=== PATIENT | female | born 1985 | race Caucasian/White ===

== ENCOUNTER → 2017-11-19 11:00 | Outpatient (CLI) | payer OTHER, SELFPAY ==
--- NOTE | 2017-11-19 16:24 | HPBI_ITS ---
MAMMOGRAPHY - BILATERAL SCREENING REASON FOR EXAM: Female, 32 years old. Routine annual screening examination. PERTINENT HISTORY: Mother with breast cancer. Aunt with breast cancer. TECHNIQUE: Digital bilateral breast db (3D mammographic acquisition) in the CC and MLO projections. 2-D mediolateral oblique (MLO) and craniocaudad (CC) views of both breasts were obtained. CAD: Full Field Digital Mammography with Computer Added Detection was performed. COMPARISON: Comparison is made with prior study dated October 27, 2016. FINDINGS: Breast Composition: The breasts are extremely dense, which lowers the sensitivity of mammography. There are no dominant masses or suspicious calcifications. No other significant abnormalities are identified. There has been no significant change since the prior study. HPBI/SCREENING MAMM (CAD), BILAT IMPRESSION: Stable bilateral screening mammogram. Yearly follow-up mammogram recommended. (A) ASSESSMENT CATEGORY: BIRADS Category 1: Negative. A letter regarding these results will be sent to the patient by the facility within 30 days. Approximately 10% of breast cancers are not detected by mammography. A normal mammogram should not delay biopsy of a clinically suspicious abnormality. [id number] Electronically Signed: Cesario Turner, at 9:01 EDT , Service support ,
== END ==
PROVIDERS: Family Provider Family Medicine; PCP Family Medicine; Visit Provider Obstetrics & Gynecology
DX: Z12.31 Encounter for screening mammogram for malignant neoplasm of breast (principal)
CPT/HCPCS: 77063; 77067

== ENCOUNTER → 2018-05-22 13:17 | Outpatient (CLI) | payer OTHER, SELFPAY ==
--- NOTE | 2018-05-22 13:28 | MRI_ITS ---
STUDY: BILATERAL BREAST MR WITHOUT AND WITH CONTRAST REASON FOR EXAM: Female, 33 years old. BRCA 1 positive. Dense fibroglandular tissue. TECHNIQUE: Multi-sequence multi-echo imaging of both breasts was performed with a dedicated breast coil. T1-weighted and T2-weighted images were performed before the administration of contrast. T1-weighted images were also performed after the administration of 6 mL of Gadavist contrast intravenously without complications. COMPARISON: Mammograms dated November 19, 2017 and October 27, 2016 FINDINGS: RIGHT BREAST: The breast tissue is heterogeneously dense with minimal background enhancement. There are no abnormal enhancing masses or areas of non-mass enhancement in the right breast. LEFT BREAST: The breast tissue is heterogeneously dense with minimal background enhancement. There are no abnormal enhancing masses or areas of non-mass enhancement in the left breast. There are no enlarged or abnormal lymph nodes. There is no abnormality in the visualized regions of the chest or liver. MRI/Breast w/o and/or W Cont Bilat IMPRESSION: No significant abnormality identified on the breast MR examination with contrast. CATEGORY: BIRADS Category 1: Negative. A letter regarding these results will be sent to the patient by the facility within 30 days. Electronically Signed: Delfino Martinez MD at 15:01 EDT , Service support ,
== END ==
PROVIDERS: Family Provider Family Medicine; PCP Family Medicine; Visit Provider Obstetrics & Gynecology
DX: R92.2 Inconclusive mammogram (principal); Z15.01 Genetic susceptibility to malignant neoplasm of breast
CPT/HCPCS: 77059; A9585; A4216; C8908

== ENCOUNTER → 2018-06-10 16:15 | Outpatient (CLI) | payer OTHER, SELFPAY | PROVIDERS: Family Provider Family Medicine; PCP Family Medicine; Referring Provider Physician Assistant; Visit Provider Physician Assistant | DX: J02.9 Acute pharyngitis, unspecified (principal) | CPT/HCPCS: 87081 ==

== ENCOUNTER 2018-08-12 05:39 | Day surgery (SDC) | payer OTHER, SELFPAY ==
[2018-06-10 06:17] VITALS: BMI 25.4
[2018-08-07 17:57] LABS: Hematocrit 38.9 % (37-47); Hemoglobin 12.6 g/dl (12.0-15.0); Mean Corp Hgb Conc 32.4 g/gl (32-36); Mean Corpuscular Hgb 30.1 pg (27.0-32.0); Mean Corpuscular Volume 93.1 fL (81-99); Mean Platelet Vol. 9.1 fl (6.2-12.0); Platelet Count 305 K/mm3 (150-450); RBC Distribution Width CV 12.6 % (11.6-14.6); RBC Distribution Width SD 42.4 fl (35.1-43.9); Red Blood Count 4.18 M/mm3 (4.2-5.4); Scan Indicated on CBC? Y/N NO; White Blood Count 8.1 K/mm3 (4.4-11.0)
[2018-08-07 18:04] LABS: Prothrombin Time (Protime)PT. 13.1 SECONDS (11.7-14.9)
[2018-08-07 18:05] LABS: Partial Thromboplast Time 28.6 Seconds (24.1-36.2)
[2018-08-07 18:27] LABS: Anion Gap 6 (5-15); BUN 16 mg/dL (7-18); BUN/Creat Ratio 25.1 RATIO (10-20); Calcium,Total 8.9 mg/dL (8.5-10.1); Chloride 108 mmol/L (98-107); Creatinine, Serum 0.64 mg/dL (0.55-1.02); EST Glomerular Filtration Rate 115 mL/min (>60); Est Glom Filt Rate - Afr Amer 139 mL/min (>60); Glucose 90 mg/dL (74-106); Potassium 3.9 mmol/L (3.5-5.1); Sodium Level 140 mmol/L (136-145)
[2018-08-07 18:36] LABS: Pregnancy, Serum, hCG Quali. NEGATIVE Negative (0-9 Nonpreg)
--- NOTE | 2018-08-10 14:40 | PCM.HP.BLA ---
History and Physical Date of Admission: 08/12/18 Surgical History and Physical Berta Blackburn, a 33 year old female 2 0 0 0 2, presents for RAVH/BSO on August 12, 2018 at 7:30. -- BRCA+ Genetics -- C section delivery in 2014. She is concerned as she has BRAC1+. Has had pelvic u/s d/t her level of anxiety. Desires hysterecomy before age 36. Also considering bilateral mastectomy at some point. MEDICATIONS HISTORY: Current medications prescribed by our practice are: 1. Zofran ODT 4 mg disintegrating tablet, 1 q 8 hrs prn nausea ALLERGIES: Pcn, Rash, Sulfa, Rash, Percocet, Rash, itching, Penicillins, Rash, Sulfa (Sulfonamides), Rash and itching Infections - Chicken pox Illnesses - bicuspid aortic valve and heart murmur Accidents - no injuries of consequence Hospitalizations - see surgery pt +BRACA1; Review of Systems: GENERAL - Denies fever, or chills SKIN - Denies skin changes EYES - Denies visual changes EARS - Denies difficulty hearing NOSE - Denies nasal congestion or bleeding MOUTH - Denies sore throat or difficulty swallowing NECK - Denies pain or swelling RESPIRATORY - Denies shortness of breath or wheezing CARDIOVASCULAR - Denies palpitations or chest pain GASTROINTESTINAL - Denies nausea, vomiting, diarrhea, constipation GENITOURINARY - Denies dysuria, frequency of urination, incontinence of urine MUSCULOSKELETAL - Denies joint or muscle pain NEUROLOGICAL - Denies localized numbness or weakness PSYCHIATRIC - Denies depression or anxiety ENDOCRINE - Denies heat or cold intolerance, weight loss or gain HEMATO-IMMUNOLOGIC - Denies excesive bleeding with cuts SOCIAL HISTORY: Alcohol Use - drinks occasionally Smoking - denies smoking Diet - balanced Diet Lifestyle - and will be moving Exercise - walking Employer - [employer] 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 Maternal Grandmother: Ovarian cancer. Paternal Aunt: Breast cancer. MENSTRUAL HISTORY: LMP Known?- DefiniteAmount/Duration - 6-7, Regularity - Regular, Frequency - monthly days, LMP - 08/06/18, Age Onset Menarche - 12 PAST PREGNANCIES: Total Pregnancies - 2; Full Term Pregnancies - 2; Premature - 0; Abortions, Induced - 0; Abortions, Spontaneous - 0; Ectopics - 0; Multiple Births - 0; Living Children - 2 SURGICAL HISTORY: 1. 09/10/1993 T and A 2. 05/25/2014 ; Giovanna Greenfield M.D. - CPD Prominent sacrum, narrow pelvis AP diameter 3. R large toe, ingrown toenail, 09/24 4. 07/05/2015 ; Giovanna Greenfield M.D. PHYSICAL EXAM BP- 110/70 Sitting, Right arm, regular cuff Weight- 133.62913 lbs Height- 60.00 inch BMI:26.11 CONSTITUTIONAL - NAD, well nourished, and well developed HEENT - Normocephalic, PERRLA, EOMI NECK - no nuchal rigidity LUNGS - clear to auscultation CARDIAC - normal s1, normal s2, no s3 BREAST - no dominant masses, no tenderness, no axillary adenopathy, no nipple discharge and no skin changes ABDOMEN - no masses, no tenderness EXTREMITIES - No edema or calf tenderness NEUROLOGICAL - Cranial nerves II-XII grossly intact PSYCHIATRIC - A and O to time, place, person, mood and affect PAP SMEAR - done External Genital Vagina - non-tender without lesions Urethra/Urethral Meatus - non-tender Bladder - non-tender Vagina - vaginal batista are pink and moist without loss of rugae and no evidence of atropy Cervix - without cervical motion tenderness and has normal size and features without evident lesions Uterus - 5-6 cm in size, mobile and nontender Adnexa - clear without massess or tenderness ASSESSMENT/PLAN: 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 No breast or ovarian cancer in patient but both prevalent in her family. Discussed treatment options and plan to proceeed with RAVH/BSO. 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 Discussed RBAs and all questions answered. Reviewed anticipated operative and postop recovery course.
[2018-08-12] VITALS (10 sets, daily range): BP systolic 90–109; BP diastolic 64–78; PULSE 61–104; RESP 14–18; TEMP 36.2–37.2; O2SAT 94–100; BMI 25.9
--- NOTE | 2018-08-12 | HYST_PTH ---
PATIENT: BRANDYN SHARMA LOC: [facility] [place] U#:[id number] AGE/SX: 33/F ROOM: RE08/12/[address]: Dr. Boogie Quiles MD : 1985 BED: DIS: 08/13/2018 SPEC #: [id number] RECD: 08/12/18 13:25 STATUS: SHIVANI HUSSEIN #: [id number] CRISPIN: 08/12/18 00:[address]: Boogie Quiles DEPT: SURGICAL PATHOLOGY RECD BY: Jose Adame ENTERED: 08/12/18 13:26 SP TYPE: HYSTERECT OTHR DR: MD Dr. Tejal Rodriguez, DO Tissues: Uterus, NOS Procedures: Surgery Specimen Level V HEADER OPERATION: ERAS, lap robotic hysterectomy, bilateral salpingo-oophorectomy PRE-OP DIAGNOSIS: Genetic susceptibility to malignant neoplasm of breast and ovary, BRCA positive TISSUE SUBMITTED: Uterus, bilateral fallopian tubes and ovaries MICROSCOPIC DIAGNOSIS Uterus, hysterectomy: Cervix - nabothian cysts and mild chronic inflammation. Endometrium - proliferative endometrium. Myometrium - no pathologic change. Right ovary - follicular and hemorrhagic corpus luteal cysts. Right fallopian tube - benign paratubal cyst. Left ovary - follicular and corpus luteal cysts. Left fallopian tube - no pathologic change. AM:diego 08/13/18 MICROSCOPIC DESCRIPTION Slides are reviewed. GROSS DESCRIPTION Received in fixative is one container labeled with the patient's name and designated uterus. The specimen consists of a uterus with attached cervix, right and left fallopian tubes. The uterus with cervix measures 7 x 5 x 3.5 cm and weighs 55 gm. The ectocervix is unremarkable. The cervical os is oval in contour. No cervical lesions are identified. The serosal aspect is smooth and glistening. The endocervical canal measures 2.5 cm in length and is grossly unremarkable. The triangular endometrial cavity measures 3 x 2.8 cm. The velvety, light patterson endometrium measures up to 0.2 cm in thickness. The myometrium measures 1.5 cm in average thickness and is free of mass lesions. The smooth, glistening, pink-patterson cystic right ovary measures 3 x 2 x 1.8 cm. Sections reveal multiple cysts containing clear to bloody fluid. The cysts range in size from 0.5 to 1.2 cm in greatest dimension. The adjacent fallopian tube measures 7 cm in length and 0.6 cm in average diameter. The fimbriated end has a normal villous appearance. No tubo-ovarian adhesions are identified. The left ovary is similar in appearance to right ovary and measures 3.5 x 2 x 2 cm. Serial sections of the left ovary likewise reveal multiple cysts containing clear to bloody fluid. The cysts range in size from 0.5 cm to 1 cm in greatest dimension. The left fallopian tube is similar in appearance to right fallopian tube and measures 6 cm in length and 0.7 cm in average diameter. No tubo-ovarian adhesions are seen. P[employer] sections are submitted in ten cassettes as follows: 1 - anterior cervix, 2 - posterior cervix, 3 & 4 - anterior uterine wall, 5 & 6 - posterior uterine wall, 7 & 8 - right fallopian tube and ovary, 9 & 10 - left fallopian tube and ovary. / AM:diego 08/12/18 TC:5 CPT: 37917
--- NOTE | 2018-08-12 06:07 | EKG12_ITS ---
Test Reason : PRE-OP Blood Pressure : / mmHG Vent. Rate : 077 BPM Atrial Rate : 077 BPM P-R Int : 170 ms QRS Dur : 088 ms QT Int : 366 ms P-R-T Axes : 076 056 058 degrees QTc Int : 414 ms Normal sinus rhythm Normal ECG Confirmed by VANDA GONZALEZ, PATRICK ([id number]), video news editor MARU CHAPA ([id number]) on 08/15/2018 3:24:49 PM Referred By: Boogie Quiles Confirmed By:PATRICK DC MD
[2018-08-12] MEDS: Gabapentin 600 MG Tablet PO (06:42)
[2018-08-12] MEDS: Scopolamine 1mg/72hr Patch 1 PATCH TRANSDERM. (06:43)
[2018-08-12] MEDS: Acetaminophen 500 MG Tablet 1000 MG PO (06:43)
[2018-08-12 07:05] LABS: Internal QC Validated? YES +Cl - CLEAR BKGD; Pregnancy, Urine Negative Negative
[2018-08-12 07:11] LABS: Bedside Glucose 104 mg/dL (70-110)
--- NOTE | 2018-08-12 07:37 | PCM.OPRPT ---
Report of Operation Date of Procedure: 08/12/18 Pre-Operative Diagnosis: Positive Breast and Ovarian Cancer Tumor Markers; BRCA Positive Post-Operative Diagnosis: Positive Breast and Ovarian Cancer Tumor Markers; BRCA Positive Surgery/Procedure Performed:: Robotic Assisted Vaginal Hysterectomy and Bilateral Salpingo-Oophorectomy Description of Surgical Findings:: 8 cm uterus with normal-appearing fallopian tubes and ovaries. acid treater: Sowmya Smith acid treater: Mariam Alonso Type of Anesthesia:: General Anesthesiologist: Horace Saavedra Specimen's removed: Uterus and bilateral fallopian tubes and ovaries Drains: Tomlinson to straight drain Estimated Blood Loss (mL): Minimal Fluids Replaced: Crystalloid Description of Procedure: Surgeon: Boogie Quiles MD, FACOG Findings: 8 cm uterus with normal appearing tubes and ovaries bilaterally. Some adhesions of the uterus to the anterior abdominal wall from prior sections. Indication: This is a 33 year old patient who is BRCA positive. Given her markedly increased risk of breast and ovarian cancer the patient desires the above surgery. The patient has been counseled regarding the risks, benefits and alternatives of this procedure including the possibility of bleeding, infection, and injury to surrounding structures such as bowel bladder and all questions were answered. She understands that she may need to be on HRT for an indefinite period of time. Procedure: Pt taken to the operating room where after induction of general anesthesia the patient was prepped and draped in the usual sterile fashion and placed on a non-slip Huggy-u-vac device. Trendendelenburg test was satisfactory. Bladder was drained of urine with a Tomlinson catheter which was left in place. Anterior cervix grasped and cervix was dilated to about 3-4 mm. Uterus sounded to 7 cms. 0-Vicryl suture was placed at the 3:00 and 9:00 position of the cervix. A medium V-care device was then placed in the uterus to allow uterine manipulation and attention was turned to the laparoscopic portion of the procedure. Ropivocaine 0.5% was injected approximately 2-3 cm superior to the umbilicus and an 8 mm robotic camera port was introduced directly with intraperitoneal placement confirmed with insufflation. 8 mm robotic side ports were introduced under direct visualization approximately 10 cm lateral and 2 cm inferior to the umbilical port. A 5 mm left upper quadrant port was introduced and airseal insufflation with CO2 was started. The above findings were noted. Robot was docked without difficulty and attention turned to the robotic portion of the procedure. Approximately 27 cc of Ropivicaine was used. Bilateral infundibulocal ligaments/mesosalpinx were ligated with 35 aquino bipolar coagulation to the level of the round ligament. The posterior aspect of the cervix was identified and then opened for about 1 cm using 25 watt monopolar cautery identifying the V-care device which had been placed vaginally. Bladder flap was opened and divided to the level of the round ligaments using monopolar cautery. Progressive bites were then ligated on each side of the cervix with 35 aquino bipolar cautery to the uterine arteries. The anterior vaginal mucosa was then entered and cervix circumscribed with monopolar cautery. Uterus and attached ovaries and tubes were then removed through the vagina. Vaginal cuff was closed first with 0-Vicryl Trent stitches placed at each angle followed by closure of the mid-cuff with 0-Monocryl V-lock suture in two layers. Pelvis was copiously irrigated with saline and the right and left ureters were noted to peristalse. Robot was undocked and trocars were removed with as much gas as possible. Incisions were closed with 4-0 Monocryl subcuticular sutures and incisions covered with steri-strips and opsite dressing. The patient tolerated the procedure well and was taken to the recovery room in satisfactory condition. Sponge, instruments and needle counts were all correct. There were no apparent complications of the surgery. Cefotan 2 gms IV was given prior to the procedure. Grafts/Implants Used: None - Complications None - Admit VTE Documentation VTE Present on Admission: Yes VTE Mechan Device Prophylaxis: SCD's VTE Pharm Prophylaxis ordered?: Yes
--- NOTE | 2018-08-12 07:41 | PCM.DC.VHY ---
Discharge Diet: No Restrictions Discharge Activity: Return to Normal Activity, May Not Drive - while taking narcotic pain medications., May Shower May resume sexual activity in: 6-8 weeks Call your doctor if your incision/area has: Continuous Slow Oozing, Sudden Increased Bleeding, Increased Pain/ Swelling, Increased Redness, Foul Smelling Discharge Call your doctor if you observe: Fever of 101 or Higher, Inability to urinate, Inability to have a bowel movement, Using more than one pad per hour Allergies/Adverse Reactions: Allergies oxycodone HCl [From Percocet] Allergy (Verified 08/05/18 13:16) Itching Penicillins Allergy (Verified 08/05/18 13:16) Rash Sulfa (Sulfonamide Antibiotics) Allergy (Verified 08/05/18 13:16) Rash Medications to take at Discharge clindamycin HCl 300 mg capsule 600 mg PO ONCE PRN #10 cap 09/19/17 Fluticasone 0.05% [Flonase Nasal Partridge] 1 spray NASAL DAILY 08/05/18 Loratadine/Pseudo 240/10 [Claritin-D 24 Hr] 1 tablet PO DAILY PRN 08/05/18 Mv-Min/Iron/Folic/Calcium/Vitk [Women's Multivitamin Tablet] 1 each PO DAILY 08/05/18 Docusate Sodium [Colace] 100 mg PO BID PRN PRN #60 cap 08/12/18 traMADol [Ultram (G)] 50 mg PO Q6H PRN PRN 7 Days #20 tab 08/12/18 The following prescriptions were given: traMADol [Ultram (G)] 50 mg PO Q6H PRN PRN 7 Days #20 tab PRN Reason: Severe Pain () Docusate Sodium [Colace] 100 mg PO BID PRN PRN #60 cap PRN Reason: Constipation Primary Care Physician: Tejal Mcrae DO [Primary Care Provider] - Test Results: Test results from this visit will be discussed in further detail at your follow-up appointment, if applicable.
[2018-08-12] MEDS: Lidocaine/D5W 2,000 MG/250 ML IV.SOLN 18.12 MG IV (08:13)
[2018-08-12] MEDS: Ondansetron 4 MG/2 ML Vial IV (10:00)
[2018-08-12] MEDS: Ropivacaine 0.5% 30 ML Vial (10:02)
[2018-08-12] MEDS: Ketorolac 30 MG/ML Syringe IV ×3 (12:21→22:42)
[2018-08-12] MEDS: Dextrose 5%-Lactated Ringers 1,000 ML 125 ML IV (12:24)
[2018-08-12] MEDS: Estrogens,Conj. 0.625 MG Tablet PO (18:11)
[2018-08-12] MEDS: Enoxaparin 30 MG/0.3 ML Syringe SC (18:11)
[2018-08-12] MEDS: 0.9% NaCl Peripheral Flush Adult/Peds IV (22:42)
[2018-08-13 03:40] VITALS: BP 105/71; PULSE 81; RESP 16; TEMP 36.7; O2SAT 97
[2018-08-13] MEDS: Ketorolac 30 MG/ML Syringe IV ×2 (03:48→09:42)
[2018-08-13 05:59] LABS: Hematocrit 34.3 % (37-47); Hemoglobin 11.1 g/dl (12.0-15.0); Mean Corp Hgb Conc 32.4 g/gl (32-36); Mean Corpuscular Hgb 30.8 pg (27.0-32.0); Mean Corpuscular Volume 95.3 fL (81-99); Mean Platelet Vol. 9.9 fl (6.2-12.0); Platelet Count 269 K/mm3 (150-450); RBC Distribution Width CV 12.3 % (11.6-14.6); RBC Distribution Width SD 41.5 fl (35.1-43.9); White Blood Count 12.5 K/mm3 (4.4-11.0)
[2018-08-13 06:08] LABS: Scan Indicated on CBC? Y/N NO
[2018-08-13 06:12] LABS: Creatinine, Serum 0.85 mg/dL (0.55-1.02); EST Glomerular Filtration Rate 82 mL/min (>60); Est Glom Filt Rate - Afr Amer 100 mL/min (>60); Estimated Creatinine Clearance 68.25 ml/min
[2018-08-13 07:00] VITALS: O2SAT 97
--- NOTE | 2018-08-13 08:23 | PCM.PN.OB ---
Subjective: Patient without complaints. Tolerating diet well. Able to void on her own. Minimal pain today. - Physical Exam Vital Signs AF, VSS Temp Pulse Resp BP Pulse Ox 98.0 F 81 16 105/71 97 08/13/18 03:40 08/13/18 03:40 08/13/18 03:40 08/13/18 03:40 08/13/18 03:40 Oxygen Delivery Method Room Air Weight: 133 lb 2.547 oz Body Mass Index (BMI) 25.9 Intake and Output for Last 24 Hours 08/11/18 08/12/18 08/13/18 23:59 23:59 23:59 Intake Total 3799 / 3799 400 / 400 Output Total 1575 / 1575 300 / 300 Balance 2224 / 2224 100 / 100 Laboratory Tests Past 24 Hrs 08/13/18 08/13/18 05:18 05:18 WBC 12.5 H RBC 3.60 L Hgb 11.1 L Hct 34.3 L MCV 95.3 MCH 30.8 MCHC 32.4 RDW 12.3 RDW Differential 41.5 Plt Count 269 MPV 9.9 Creatinine 0.85 Estim Creat Clear Calc 68.25 Est GFR (MDRD) Af Amer 100 Est GFR (MDRD) Non-Af 82 Wounds are clean, dry, intact. Good urine output. Hemoglobin and creatinine okay. Medical Necessity - Tobacco Use Smoking Status: Never smoker Assessment/Plan All Active Problems (Last Reviewed 06/10/18 @ 06:19 by Sarah Mercedes) Earache on left (Acute) Pharyngitis, acute (Acute) Doing well postoperative day #1 status post robotic assisted vaginal hysterectomy and bilateral salpingo-oophrectomy. We will released to home with routine instructions.
[2018-08-13] MEDS: Estrogens,Conj. 0.625 MG Tablet PO (09:41)
[2018-08-13] MEDS: 0.9% NaCl Peripheral Flush Adult/Peds IV (09:45)
[2018-08-13 09:51] VITALS: BP 109/74; PULSE 89; RESP 16; TEMP 37; O2SAT 98
--- OUTSIDE RECORDS SUMMARY | 2018-10-05 03:46 | XMS RPT_ITS ---
:1985 Author Organization OHIP Support Name Relationship Address Phone LOPEZ ASTUDILLO Unavailable Unavailable + TAMEKA BLACKBURN Unavailable [address] + [place] [address] TRILOCSCH Unavailable [address] + [place] [address] LOPEZ ASTUDILLO Unavailable NA + [place], [place] TAMEKA BLACKBURN Unavailable [address] + [place] [address] TRILOCSCH Unavailable [address] + [place] [address] LOPEZ ASTUDILLO Unavailable NA + [place], [place] TAMEKA BLACKBURN Unavailable [address] + [place] [address] TRILOCSCH Unavailable [address] + [place] [address] LOPEZ ASTUDILLO Unavailable NA + [place], [place] TAMEKA BLACKBURN Unavailable [address] + [place] [address] TRILOCSCH Unavailable [address] + [place] [address] LOPEZ ASTUDILLO Unavailable NA + [place], [place] TAMEKA BLACKBURN Unavailable [address] + [place] [address] TRILOCSCH Unavailable [address] + [place] [address] LOPEZ ASTUDILLO Unavailable NA + [place], [place] TAMEKA BLACKBURN Unavailable [address] + [place] [address] TRILOCSCH Unavailable [address] + [place] [address] ASTUDILLOLOPEZ Unavailable NA + [place], [place] EDITH TAMEKA Unavailable [address] + [place] [address] TRILOCSCH Unavailable [address] + [place] [address] ASTUDILLO LOPEZ Unavailable NA + [place], [place] RIDOLMAK TAMEKA Unavailable [address] + [place] [address] TRILOCSCH Unavailable [address] + [place] [address] BAUDILIO MEHRDAD Unavailable [address] + [place] [address] EDITH TAMEKA Unavailable [address] + [place] [address] TRILOCSCH Unavailable [address] + [place] [address] BAUDILIOLOPEZ Unavailable NA + [place], [place] TAMEKA BLACKBURN Unavailable [address] + [place] [address] TRILOCSCH Unavailable [address] + [place] [address] Care Team Providers Name Role Phone Suman Vazquezl Attending Unavailable Malys, Tejal Primary Care Unavailable Taylor, Harry Attending Unavailable Malys, Tejal Referring Unavailable Malys, Tejal Primary Care Unavailable Benekos, Giovanna Attending Unavailable Malys, Tejal Primary Care Unavailable Taylor, Harry Attending Unavailable Taylor, Harry Referring Unavailable Benekos, Giovanna Attending Unavailable Malys, Tejal Primary Care Unavailable Elie Duncan Attending Unavailable Malys, Tejal Referring Unavailable Malys, Tejal Primary Care Unavailable Benekos, Giovanna Attending Unavailable Benekos, Giovanna Referring Unavailable Malys, Tejal Primary Care Unavailable Griffin Gale Attending Unavailable Malys, Tejal Referring Unavailable Griffin Gale Attending Unavailable Griffin Gale Referring Unavailable Malys, Tejal Primary Care Unavailable Weeman, Tameka Attending Unavailable Tejal Mcrae Primary Care Unavailable Tameka Quiles Referring Unavailable Claude Quiles Consulting Unavailable PROBLEMS PROBLEMS DATE TYPE CONDITION / CODE ATTENDING STATUS SOURCE 08/13/2018 Unknown G89.18 - Other acute Tameka Quiles Active [place] postprocedural pain [facility] / G89.18(ICD-10) Hospital Repository 06/10/2018 Unknown J02.9 - Acute Griffin Gale Active [place] pharyngitis, [facility] unspecified / Hospital J02.9(ICD-10) Repository 05/22/2018 Unknown R92.2 - Inconclusive Giovanna Greenfield Active [place] mammogram / [facility] R92.2(ICD-10) Hospital Repository 05/22/2018 Unknown Z15.01 - Genetic Giovanna Greenfield Active [place] susceptibility to [facility] malignant neoplasm [facility] breast / Repository Z15.01(ICD-10) 05/01/2018 Unknown J02.0 - Elie Duncan Active [place] [facility] ph[facility]itis / Hospital J02.0(ICD-10) Repository 10/02/2017 Unknown Z12.4 - Encounter Giovanna Greenfield Active [place] for screening for [facility] malignant neoplasm [facility] cervix / Repository Z12.4(ICD-10) 09/20/2017 Unknown Q23.1 - Congenital Taylor, Harry Active [place] insufficiency of [facility] aortic valve / Hospital Q23.1(ICD-10) Repository 10/02/2017 Unknown I35.0 - Nonrheumatic Taylor, Harry Active [place] aortic (valve) [facility] stenosis / Hospital I35.0(ICD-10) Repository PROCEDURES PROCEDURES No Procedure Records FoundRESULTS RESULTS 12 LEAD ELECTROCARDIOGRAM Observed: 08/15/2018 Status: F Source: [place] 3:25 PM [facility] REPOSITORY [place] [facility] [address] [place] [address] 12 Lead EKG 08/12/18 0628 MR#: [id number] Acct: [id number] Name: BERTA BLACKBURN Rep #: [id number] : 1985 33 From: Sheng Dc MD Attending Dr: Tameka Quiles MD Status: [facility] Ordering Dr: Horace Saavedra MD Date: 12/03/18 Location: [facility] Sex: F C Admitted: Test Reason : PRE-OP Blood Pressure : / mmHG Vent. Rate : 077 BPM Atrial Rate : 077 BPM P-R Int : 170 ms QRS Dur : 088 ms QT Int : 366 ms P-R-T Axes : 076 056 058 degrees QTc Int : 414 ms Normal sinus rhythm Normal ECG Confirmed by VANDA GONZALEZ, SHENG ([id number]), editor in chief newspaper MARU CHAPA ([id number]) on 08/15/2018 3:24:49 PM Referred By: Tameka Quiles Confirmed By:SHENG DC MD 08/15/18 1524 Date Sheng Dc MD CC: Horace Saavedra MD; Tameka Quiles MD; Tejal Mcrae DO Signed CBC-COMPLETE BLOOD CNT Collected: 08/13/2018 Status: F Source: [place] NO DIFF 5:18 AM [facility] REPOSITORY TYPE CODE TESTS RESULT OUT OF RANGE REFERENCE UNITS LAB L100.1000 4.4-11.0 K/mm3 High WBC 12.5 LAB L100.1200 4.2-5.4 M/mm3 Low RBC 3.60 LAB L100.1300 12.0-15.0 g/dl Low HGB 11.1 LAB L100.1400 37-47 % Low HCT 34.3 LAB L100.1500 81-99 fL Normal MCV 95.3 LAB L100.1600 27.0-32.0 pg Normal MCH 30.8 LAB L100.1700 32-36 g/gl Normal MCHC 32.4 LAB L100.1810 11.6-14.6 % Normal RDW CV 12.3 LAB L100.1820 35.1-43.9 fl Normal RDW SD 41.5 LAB L100.1900 150-450 K/mm3 Normal PLT 269 LAB L100.2000 6.2-12.0 fl Normal MPV 9.9 Performed By: #### L100.0500 #### [facility] [address] [place], [address] SERUM CREATININE AND Collected: 08/13/2018 Status: F Source: [place] GFR 5:18 AM [facility] REPOSITORY TYPE CODE TESTS RESULT OUT OF RANGE REFERENCE UNITS LAB L501.1100 0.55-1.02 mg/dL Normal 0.85 CREAT,SERUM Result Comment: The validity of the calculated GFR AND GFRAA in patients over 70 years has not been determined. Clinical correlation is essential. LAB L501.1110 >60 mL/min Normal EST GFR 82 Result Comment: Non- GFR Calc LAB L501.1115 >60 mL/min Normal EST GFR - AA 100 Result Comment: GFR Calc LAB L501.1255 ml/min Normal Estimated CRCL 68.25 Performed By: #### L501.1105 #### [facility] [address] [facility] [place], [address] OPERATIVE REPORT Observed: 08/12/2018 Status: F Source: [place] 10:15 AM [facility] REPOSITORY [place] Medical Records Department [address] [place] [address] Operative Report 08/12/18 0737 MR#: [id number] Acct: [id number] Name: BERTA BLACKBURN Joo Rep #: [id number] : 1985 33 From: Tameka Quiles MD PCP: Tejal Mcrae DO Status: [facility] Y Location: [place] [address] Report of Operation Date of Procedure: 08/12/18 Pre-Operative Diagnosis: Positive Breast and Ovarian Cancer Tumor Markers; BRCA Positive Post-Operative Diagnosis: Positive Breast and Ovarian Cancer Tumor Markers; BRCA Positive Surgery/Procedure Performed:: Robotic Assisted Vaginal Hysterectomy and Bilateral Salpingo-Oophorectomy Description of Surgical Findings:: 8 cm uterus with normal-appearing fallopian tubes and ovaries. manager linux: Sowmya Smith manager linux: Mariam Alonso Type of Anesthesia:: General Anesthesiologist: Horace Saavedra Specimen's removed: Uterus and bilateral fallopian tubes and ovaries Drains: Tomlinson to straight drain Estimated Blood Loss (mL): Minimal Fluids Replaced: Crystalloid Description of Procedure: Surgeon: Tameka Quiles MD, FACOG Findings: 8 cm uterus with normal appearing tubes and ovaries bilaterally. Some adhesions of the uterus to the anterior abdominal wall from prior sections. Indication: This is a 33 year old patient who is BRCA positive. Given her markedly increased risk of breast and ovarian cancer the patient desires the above surgery. The patient has been counseled regarding the risks, benefits and alternatives of this procedure including the possibility of bleeding, infection, and injury to surrounding structures such as bowel bladder and all questions were answered. She understands that she may need to be on HRT for an indefinite period of time. Procedure: Pt taken to the operating room where after induction of general anesthesia the patient was prepped and draped in the usual sterile fashion and placed on a non-slip Huggy-u-vac device. Trendendelenburg test was satisfactory. Bladder was drained of urine with a Tomlinson catheter which was left in place. Anterior cervix grasped and cervix was dilated to about 3-4 mm. Uterus sounded to 7 cms. 0-Vicryl suture was placed at the 3:00 and 9:00 position of the cervix. A medium V-care device was then placed in the uterus to allow uterine manipulation and attention was turned to the laparoscopic portion of the procedure. Ropivocaine 0.5% was injected approximately 2-3 cm superior to the umbilicus and an 8 mm robotic camera port was introduced directly with intraperitoneal placement confirmed with insufflation. 8 mm robotic side ports were introduced under direct visualization approximately 10 cm lateral and 2 cm inferior to the umbilical port. A 5 mm left upper quadrant port was introduced and airseal insufflation with CO2 was started. The above findings were noted. Robot was docked without difficulty and attention turned to the robotic portion of the procedure. Approximately 27 cc of Ropivicaine was used. Bilateral infundibulocal ligaments/mesosalpinx were ligated with 35 aquino bipolar coagulation to the level of the round ligament. The posterior aspect of the cervix was identified and then opened for about 1 cm using 25 watt monopolar cautery identifying the V-care device which had been placed vaginally. Bladder flap was opened and divided to the level of the round ligaments using monopolar cautery. Progressive bites were then ligated on each side of the cervix with 35 aquino bipolar cautery to the uterine arteries. The anterior vaginal mucosa was then entered and cervix circumscribed with monopolar cautery. Uterus and attached ovaries and tubes were then removed through the vagina. Vaginal cuff was closed first with 0-Vicryl Trent stitches placed at each angle followed by closure of the mid-cuff with 0-Monocryl V-lock suture in two layers. Pelvis was copiously irrigated with saline and the right and left ureters were noted to peristalse. Robot was undocked and trocars were removed with as much gas as possible. Incisions were closed with 4-0 Monocryl subcuticular sutures and incisions covered with steri-strips and opsite dressing. The patient tolerated the procedure well and was taken to the recovery room in satisfactory condition. Sponge, instruments and needle counts were all correct. There were no apparent complications of the surgery. Cefotan 2 gms IV was given prior to the procedure. Grafts/Implants Used: None - Complications None - Admit VTE Documentation VTE Present on Admission: Yes VTE Mechan Device Prophylaxis: SCD's VTE Pharm Prophylaxis ordered?: Yes 08/12/18 1015 <Electronically signed by Tameka Quiles MD> Date Tameka Quiles MD CC: Claude Quiles MD; Tameka Quiles MD; Tejal Mcrae DO Signed DISCHARGE INSTRUCTION Observed: 08/12/2018 Status: F Source: [place] 10:15 AM [facility] REPOSITORY [place] Medical Records Department [address] [place] [address] Instructions for Home/Discharge Instructions 08/12/18 0741 MR#: [id number] Acct: [id number] Name: BERTA BLACKBURN Aleksey Ge Rep #: [id number] : 1985 33 From: Tameka Quiles MD PCP: Tejal Mcrae DO Status: REG [facility] Discharge Diet: No Restrictions Discharge Activity: Return to Normal Activity, May Not Drive - while taking narcotic pain medications., May Shower May resume sexual activity in: 6-8 weeks Call your doctor if your incision/area has: Continuous Slow Oozing, Sudden Increased Bleeding, Increased Pain/ Swelling, Increased Redness, Foul Smelling Discharge Call your doctor if you observe: Fever of 101 or Higher, Inability to urinate, Inability to have a bowel movement, Using more than one pad per hour Allergies/Adverse Reactions: Allergies oxycodone HCl [From Percocet] Allergy (Verified 08/05/18 13:16) Itching Penicillins Allergy (Verified 08/05/18 13:16) Rash Sulfa (Sulfonamide Antibiotics) Allergy (Verified 08/05/18 13:16) Rash Medications to take at Discharge clindamycin HCl 300 mg capsule 600 mg PO ONCE PRN #10 cap 09/19/17 Fluticasone 0.05% [Flonase Nasal [place]] 1 spray NASAL DAILY 08/05/18 Loratadine/Pseudo 240/10 [Claritin-D 24 Hr] 1 tablet PO DAILY PRN 08/05/18 Mv-Min/Iron/Folic/Calcium/Vitk [Women's Multivitamin Tablet] 1 each PO DAILY 08/05/18 Docusate Sodium [Colace] 100 mg PO BID PRN PRN #60 cap 08/12/18 traMADol [Ultram (G)] 50 mg PO Q6H PRN PRN 7 Days #20 tab 08/12/18 The following prescriptions were given: traMADol [Ultram (G)] 50 mg PO Q6H PRN PRN 7 Days #20 tab PRN Reason: Severe Pain (-06/19) Docusate Sodium [Colace] 100 mg PO BID PRN PRN #60 cap PRN Reason: Constipation Primary Care Physician: Tejal Mcrae DO [Primary Care Provider] - Test Results: Test results from this visit will be discussed in further detail at your follow-up appointment, if applicable. 08/12/18 1015 <Electronically signed by Tameka Quiles MD> Date Tameka Quiles MD CC: Claude Quiles MD; Tejal Mcrae DO BEDSIDE GLUCOSE Collected: 08/12/2018 Status: F Source: [place] 6:35 AM [facility] REPOSITORY TYPE CODE TESTS RESULT OUT OF RANGE REFERENCE UNITS LAB L501.080 70-110 mg/dL Normal BEDSIDE GLU 104 Result Comment: MANAGEMENT OF PATIENT CARE PER NURSING PROTOCOL Performed By: #### L501.080 #### [place] [facility] Point of Care [facility] [address] [place], [place] [id number] ,URINE Collected: 08/12/2018 Status: F Source: [place] 6:10 AM [facility] REPOSITORY TYPE CODE TESTS RESULT OUT OF REFERENCE UNITS RANGE LAB L400.8000 Negative Normal HCGUQUAL Negative Result Comment: Very dilute urine specimens, as indicated by a low specific gravity, may not contain food service representative levels of hCG. If is still suspected, a first morning urine specimen should be collected 48 hours later and tested. Performed By: #### L400.7600 #### [facility] [address] [place], [address] HYSTERECTOMY SPECIMEN Observed: 08/12/2018 Status: F Source: [place] 12:00 AM [facility] REPOSITORY Patient: BERTA BLACKBURN : 1985 (33/F) Acct Num: [id number] Phys: Etta GONZALEZ,Tameka Unit Num: [id number] Loc: [facility] Specimen: [id number] Received: 08/12/18 - 5 Spec Type: HYSTERECT TISSUES 1 TISSUES: Uterus, NOS GROSS DESCRIPTION Received in fixative is one container labeled with the patient's name and designated uterus. The specimen consists of a uterus with attached cervix, right and left fallopian tubes. The uterus with cervix measures 7 x 5 x 3.5 cm and weighs 55 gm. The ectocervix is unremarkable. The cervical os is oval in contour. No cervical lesions are identified. The serosal aspect is smooth and glistening. The endocervical canal measures 2.5 cm in length and is grossly unremarkable. The triangular endometrial cavity measures 3 x 2.8 cm. The velvety, light patterson endometrium measures up to 0.2 cm in thickness. The myometrium measures 1.5 cm in average thickness and is free of mass lesions. The smooth, glistening, pink-patterson cystic right ovary measures 3 x 2 x 1.8 cm. Sections reveal multiple cysts containing clear to bloody fluid. The cysts range in size from 0.5 to 1.2 cm in greatest dimension. The adjacent fallopian tube measures 7 cm in length and 0.6 cm in average diameter. The fimbriated end has a normal villous appearance. No tubo-ovarian adhesions are identified. The left ovary is similar in appearance to right ovary and measures 3.5 x 2 x 2 cm. Serial sections of the left ovary likewise reveal multiple cysts containing clear to bloody fluid. The cysts range in size from 0.5 cm to 1 cm in greatest dimension. The left fallopian tube is similar in appearance to right fallopian tube and measures 6 cm in length and 0.7 cm in average diameter. No tubo- ovarian adhesions are seen. Blower Insulator sections are submitted in ten cassettes as follows: 1 - anterior cervix, 2 - posterior cervix, 3 AND 4 - anterior uterine wall, 5 AND 6 - posterior uterine wall, 7 AND 8 - right fallopian tube and ovary, 9 AND 10 - left fallopian tube and ovary. / AM:diego 08/12/18 TC:5 CPT: 87441 HEADER OPERATION: ERAS, lap robotic hysterectomy, bilateral salpingo-oophorectomy PRE-OP DIAGNOSIS: Genetic susceptibility to malignant neoplasm of breast and ovary, BRCA positive TISSUE SUBMITTED: Uterus, bilateral fallopian tubes and ovaries MICROSCOPIC DESCRIPTION Slides are reviewed. MICROSCOPIC DIAGNOSIS Uterus, hysterectomy: Cervix - nabothian cysts and mild chronic inflammation. Endometrium - proliferative endometrium. Myometrium - no pathologic change. Right ovary - follicular and hemorrhagic corpus luteal cysts. Right fallopian tube - benign paratubal cyst. Left ovary - follicular and corpus luteal cysts. Left fallopian tube - no pathologic change. AM: 08/13/18 Signed [facility] 08/13/18 <signature on file> Performed By: #### PHYST #### [facility] [address] [facility] [place], [address] HISTORY AND PHYSICAL Observed: 08/10/2018 Status: F Source: [place] EXAM 2:42 PM [facility] REPOSITORY [place] Medical Records Department [address] [place] [address] History and Physical 08/10/18 1440 MR#: [id number] Acct: [id number] Name: BERTA BLACKBURN MILA Rep #: [id number] : 1985 33 From: Tameka Quiles MD PCP: Tejal Mcrae DO Status: PRE [facility] Y Location: [facility] History and Physical Date of Admission: 08/12/18 Surgical History and Physical Berta [place], a 33 year old female 2 0 0 0 2, presents for RAVH/BSO on August 12, 2018 at 7:30. -- BRCA+ Genetics -- C section delivery in 2014. She is concerned as she has BRAC1+. Has had pelvic u/s d/t her level of anxiety. Desires hysterecomy before age 36. Also considering bilateral mastectomy at some point. MEDICATIONS HISTORY: Current medications prescribed by our practice are: 1. Zofran ODT 4 mg disintegrating tablet, 1 q 8 hrs prn nausea ALLERGIES: Pcn, Rash, Sulfa, Rash, Percocet, Rash, itching, Penicillins, Rash, Sulfa (Sulfonamides), Rash and itching Infections - Chicken pox Illnesses - bicuspid aortic valve and heart murmur Accidents - no injuries of consequence Hospitalizations - see surgery pt +BRACA1; Review of Systems: GENERAL - Denies fever, or chills SKIN - Denies skin changes EYES - Denies visual changes EARS - Denies difficulty hearing NOSE - Denies nasal congestion or bleeding MOUTH - Denies sore throat or difficulty swallowing NECK - Denies pain or swelling RESPIRATORY - Denies shortness of breath or wheezing CARDIOVASCULAR - Denies palpitations or chest pain GASTROINTESTINAL - Denies nausea, vomiting, diarrhea, constipation GENITOURINARY - Denies dysuria, frequency of urination, incontinence of urine MUSCULOSKELETAL - Denies joint or muscle pain NEUROLOGICAL - Denies localized numbness or weakness PSYCHIATRIC - Denies depression or anxiety ENDOCRINE - Denies heat or cold intolerance, weight loss or gain HEMATO-IMMUNOLOGIC - Denies excesive bleeding with cuts SOCIAL HISTORY: Alcohol Use - drinks occasionally Smoking - denies smoking Diet - balanced Diet Lifestyle - and will be moving Exercise - walking Employer - [employer] 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 Maternal Grandmother: Ovarian cancer. Paternal Aunt: Breast cancer. MENSTRUAL HISTORY: LMP Known?- DefiniteAmount/Duration - 6- 7, Regularity - Regular, Frequency - monthly days, LMP - 08/06/18, Age Onset Menarche - 12 PAST PREGNANCIES: Total Pregnancies - 2; Full Term Pregnancies - 2; Premature - 0; Abortions, Induced - 0; Abortions, Spontaneous - 0; Ectopics - 0; Multiple Births - 0; Living Children - 2 SURGICAL HISTORY: 1. 09/10/1993 T and A 2. 05/25/2014 ; Giovanna Greenfield M.D. - CPD Prominent sacrum, narrow pelvis AP diameter 3. R large toe, ingrown toenail, 09/24 4. 07/05/2015 ; Giovanna Greenfield M.D. PHYSICAL EXAM BP- 110/70 Sitting, Right arm, regular cuff Weight- 133.15246 lbs Height- 60.00 inch BMI:26.11 CONSTITUTIONAL - NAD, well nourished, and well developed HEENT - Normocephalic, PERRLA, EOMI NECK - no nuchal rigidity LUNGS - clear to auscultation CARDIAC - normal s1, normal s2, no s3 BREAST - no dominant masses, no tenderness, no axillary adenopathy, no nipple discharge and no skin changes ABDOMEN - no masses, no tenderness EXTREMITIES - No edema or calf tenderness NEUROLOGICAL - Cranial nerves II-XII grossly intact PSYCHIATRIC - A and O to time, place, person, mood and affect PAP SMEAR - done External Genital Vagina - non-tender without lesions Urethra/Urethral Meatus - non-tender Bladder - non-tender Vagina - vaginal batista are pink and moist without loss of rugae and no evidence of atropy Cervix - without cervical motion tenderness and has normal size and features without evident lesions Uterus - 5-6 cm in size, mobile and nontender Adnexa - clear without massess or tenderness ASSESSMENT/PLAN: 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 No breast or ovarian cancer in patient but both prevalent in her family. Discussed treatment options and plan to proceeed with RAVH/BSO. 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 Discussed RBAs and all questions answered. Reviewed anticipated operative and postop recovery course. 08/10/18 1442 <Electronically signed by Tameka Quiles MD> Date Tameka Quiles MD Cosigner Signature: Date (if applicable) CC: Tameka Quiles MD; Tejal Mcrae DO Signed CBC-COMPLETE BLOOD CNT Collected: 08/07/2018 Status: F Source: [place] NO DIFF 5:39 PM [facility] REPOSITORY Order Comment: Reason for Laboratory Test PRE OP TYPE CODE TESTS RESULT OUT OF RANGE REFERENCE UNITS LAB L100.1000 4.4-11.0 K/mm3 Normal WBC 8.1 LAB L100.1200 4.2-5.4 M/mm3 Low RBC 4.18 LAB L100.1300 12.0-15.0 g/dl Normal HGB 12.6 LAB L100.1400 37-47 % Normal HCT 38.9 LAB L100.1500 81-99 fL Normal MCV 93.1 LAB L100.1600 27.0-32.0 pg Normal MCH 30.1 LAB L100.1700 32-36 g/gl Normal MCHC 32.4 LAB L100.1810 11.6-14.6 % Normal RDW CV 12.6 LAB L100.1820 35.1-43.9 fl Normal RDW SD 42.4 LAB L100.1900 150-450 K/mm3 Normal PLT 305 LAB L100.2000 6.2-12.0 fl Normal MPV 9.1 Performed By: #### L100.0500 #### [facility] [place], [address] PROTHROMBIN TIME W/INR Collected: 08/07/2018 Status: F Source: [place] 5:39 PM [facility] REPOSITORY Order Comment: Reason for Laboratory Test PRE OP TYPE CODE TESTS RESULT OUT OF RANGE REFERENCE UNITS LAB L300.4150 11.7-14.9 SECONDS Normal PROTIME 13.1 LAB L300.4200 Normal INR 1.0 Performed By: #### L300.3900, L300.4310 #### [facility] [address] [place], [place], [address] PARTIAL THROMBOPLAST Collected: 08/07/2018 Status: F Source: [place] TIME 5:39 PM [facility] REPOSITORY Order Comment: Reason for Laboratory Test PRE OP TYPE CODE TESTS RESULT OUT OF RANGE REFERENCE UNITS LAB L300.4310 24.1-36.2 Seconds Normal PTT 28.6 Performed By: #### L300.3900, L300.4310 #### [facility] [address] [place], [place], [address] BASIC METABOLIC Collected: 08/07/2018 Status: F Source: [place]AND[place] PROFILE (BMP) 5:39 PM [facility] REPOSITORY Order Comment: Reason for Laboratory Test PRE OP TYPE CODE TESTS RESULT OUT OF RANGE REFERENCE UNITS LAB L501.0100 74-106 mg/dL Normal GLU 90 Result Comment: Please note revised GLUCOSE reference range effective 2017. LAB L501.1000 7-18 mg/dL Normal BUN 16 LAB L501.1100 0.55-1.02 mg/dL Normal CREAT,SERUM 0.64 Result Comment: The validity of the calculated GFR AND GFRAA in patients over 70 years has not been determined. Clinical correlation is essential. LAB L501.1110 >60 mL/min Normal EST GFR 115 Result Comment: Non- GFR Calc LAB L501.1115 >60 mL/min Normal EST GFR - AA 139 Result Comment: GFR Calc LAB L501.1300 10-20 RATIO High BUN/CRE 25.1 LAB L501.2200 8.5-10.1 mg/dL CA Normal 8.9 LAB L501.5300 136-145 mmol/L NA Normal 140 LAB L501.5600 3.5-5.1 mmol/L K Normal 3.9 LAB L501.5900 98-107 mmol/L High CL 108 LAB L501.6100 21.0-32.0 mmol/L Normal CO2 26.0 LAB L501.6200 5-15 Normal GAP 6 Performed By: #### L500.2500 #### [facility] [address] [place], [address] ,SERUM,HCG QUALI. Collected: Status: F Source: BRANDI 08/07/2018 5:39 PM [facility] REPOSITORY TYPE CODE TESTS RESULT OUT OF REFERENCE UNITS RANGE LAB L700.7000 0-9 Nonpreg Negative Normal HCGSQUAL NEGATIVE LAB L700.6700 =>Qualitative mIU/mL Normal HCG Qual < 1 triggr Performed By: #### L700.6800 #### [facility] [address] [place], [address] TYPE AND SCREEN Collected: 08/07/2018 Status: F Source: BRANDI 5:39 PM [facility] REPOSITORY Order Comment: Surgery Date: 08/12/18 Hx of Preganancy in last 3 Months No Ever experience any problems with transfusion(s)? N Hx of Transfusion in last 3 Months N Reason for Type AND Screen/Red Cells: SURGERY Other - use comments: 07000 SURGICAL PROCEDURE: RAVH/BSO TYPE CODE TESTS RESULT OUT OF RANGE REFERENCE UNITS LAB B10.0800 O Normal BLOOD TYPE GEL POSITIVE LAB B100.4000 Normal Antibody NEGATIVE Screen Performed By: #### B101.7475 #### [facility] [address] [place], [place], [address] URGENT CARE VISIT Observed: 06/10/2018 Status: F Source: BRANDI REPORT 6:52 AM [facility] REPOSITORY [facility] [address] [place] [address] [address] [place] [address] OFFICE VISIT Date of Service: 06/10/18 MR#: [id number] Acct: [id number] Name: BERTA BLACKBURN MILA Rep #: [id number] : 1985 Provider: Griffin CHRISTY Age/Sex: 33/F Location: [facility] [place] Status: Signed Intake Vital Signs06/10/18 Height 5 ft Intake Visit Reasons: SORE THROAT, ACHE, CHILLS, LT EAR ACHE Chief Complaint: Sore throat, earache Allergies acetaminophen [From Percocet] Allergy (Verified 06/10/18 06:18) Itching oxycodone HCl [From Percocet] Allergy (Verified 06/10/18 06:18) Itching Penicillins Allergy (Verified 06/10/18 06:18) Rash Sulfa (Sulfonamide Antibiotics) Allergy (Verified 06/10/18 06:18) Rash Medications clindamycin HCl 300 mg capsule 600 mg PO ONCE PRN #10 cap 09/19/17 [Rx Confirmed 06/10/18] multivitamin,ld-arxc-campwykp tablet 1 tab PO QDAY 09/19/17 [History Confirmed 06/10/18] PFS Medical History Non-rheumatic aortic regurgitation (Chronic) Non-rheumatic aortic stenosis (Chronic) Bicuspid aortic valve (Chronic) History of bicuspid heart valve (Acute) Surgical History History of (Chronic) History of tonsillectomy and adenoidectomy (Chronic) Family History Mother Hypertension Social History Smoking Status: Never smoker alcohol intake: current alcohol intake frequency: holidays/special occasions only HPI HPI Chief Complaint: Sore throat, earache Details: BERTA BLACKBURN, is a 33 F who presents to the office today for initial evaluation approximately 24-hour history of sore throat and left earache. Patient notes last night approximately 1 in the morning having a T-max of 102.0 Fahrenheit. Patient is particularly concerned because she was diagnosed with streptococcal pharyngitis approximately a month ago was treated with clindamycin at that time. Additionally, she notes occasional chills though no complaints of sweats or rash or cough or chest pain/shortness of breath. She is a non-smoker noting no other members in her household with similar symptoms. 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 She notes no other associated symptoms and no other alleviating or aggravating factors. ROS Const Constitutional: No other (ROS negative x10 other than as noted above) Exam Const General: cooperative, healthy appearing, no acute distress, comfortable Nutritional Appearance: average body habitus Orientation: alert, awake, oriented x3 HENMT Head: normal to inspection Ears: hearing grossly normal bilaterally, external ears normal, TM's normal bilaterally, EAC's normal Nose: external nose normal, nares normal, septum normal, no nasal discharge Face and sinus: normal facial exam, face symmetric, sinuses nontender Mouth: oral mucosae normal, lip normal, oropharynx normal, tongue normal Teeth and gingiva: dentition normal, gingiva normal Throat: uvula midline, posterior oropharynx normal, no postnasal drainage, abnormal tonsil (Trace erythema; rapid strep test today negative) Eyes General: appearance normal, both eyes and all related structures Neck Neck: normal visual inspection, full ROM, no meningeal signs, supple, lymphadenopathy (L>R anterior cervical lymph node swelling without tenderness to palpation) Neck mass: No Thyroid: thyroid normal Chest Chest palpation AND inspection: normal inspection of the chest Resp Effort AND Inspection: normal respiratory effort, able to speak in complete sentences Auscultation: Bilateral: Clear to Auscultation Cardio Palpation: normal PMI Rate: regular rate Rhythm: regular rhythm Heart Sounds: S1 normal, S2 normal, no gallops, murmur (1/6 systolic), no rubs Pulses: radial pulses present GI Inspection: normal to inspection Palpation: soft, no hepatosplenomegaly Skin General: no rashes or lesions noted Neuro General: alert, awake, oriented x3, gait normal Cognition: normal cognition Speech: speech normal Gait: normal gait Motor: muscle tone normal throughout Sensory Exam: no sensory deficits noted Extrem General: normal to inspection Psych Appearance: grossly normal Mental Status: mental status grossly normal Mood: congruent mood Affect: normal affect Speech and Movement: speech and movement normal Attitude: cooperative Thought Process: normal Thought Content: normal Judgment: judgment good Results [facility] Office Rapid Strep A Negative Last Edit by Sarah Mercedes on 06/10/18 06:27 Assessment AND Plan Problems 1. Acute streptococcal pharyngitis J02.0 2. Earache on left H92.02 Plan Patient aware today's rapid strep test was negative therefore culture sent to lab for further evaluation. Clear fluids, rest, Advil/Tylenol, salt water gargles, change to pressure as instructed today. Follow-up with PCP in 5-7 days should symptoms not improve, sooner should symptoms worsen or any other concerns develop. Patient states acknowledging understanding all the above. This note was generated with Alcrestaation software. It may contain incorrect words, spelling, and punctuation that were not noted in checking the note before signing. Orders Orders: Coding Level of Care Code Off vis,est,level 3 Diagnoses Acute streptococcal pharyngitis J02.0 Earache on left H92.02 06/10/18 0652 <Electronically signed by Griffin CHRISTY> Date Griffin CHRISTY Cosigner Signature: Date (if applicable) CC: Observed: 06/10/2018 Status: F Source: [place] CULTURE, R/O STREP A 6:30 AM [facility] REPOSITORY KHUSHI Culture No Group A Beta Streptococcus isolated. * This cultures intended use is to screen for Beta Streptococcus A only. All other pathogens and potential pathogens will not be screened for or reported. If a complete workup of all potential pathogens is indicated an order for a routine throat culture is required. Performed By: #### M100.010 #### [facility] [address] [place] [address]. [place], [address] BREAST W/O AND/OR W Observed: 05/22/2018 Status: F Source: [place] CONT BILAT 1:28 PM [facility] REPOSITORY [facility] [address] [place] [address] Breast w/o and/or W Cont Bilat MR#: [id number] Acct: [id number] Name: BERTA BLACKBURN MILA Rep #: [id number] : 1985 F 33 From: Delfino Martinez MD PCP: Tejal Mcrae DO Status: REG CLI Study: Breast w/o and/or W Cont Bilat Date of Exam: 05/22/18 Exam# [id number] Ordering Dr: Giovanna Greenfield MD STUDY: BILATERAL BREAST MR WITHOUT AND WITH CONTRAST REASON FOR EXAM: Female, 33 years old. BRCA 1 positive. Dense fibroglandular tissue. TECHNIQUE: Multi-sequence multi-echo imaging of both breasts was performed with a dedicated breast coil. T1-weighted and T2- weighted images were performed before the administration of contrast. T1- weighted images were also performed after the administration of 6 mL of Gadavist contrast intravenously without complications. COMPARISON: Mammograms dated November 19, 2017 and October 27, 2016 FINDINGS: RIGHT BREAST: The breast tissue is heterogeneously dense with minimal background enhancement. There are no abnormal enhancing masses or areas of non-mass enhancement in the right breast. LEFT BREAST: The breast tissue is heterogeneously dense with minimal background enhancement. There are no abnormal enhancing masses or areas of non-mass enhancement in the left breast. There are no enlarged or abnormal lymph nodes. There is no abnormality in the visualized regions of the chest or liver. MRI/Breast w/o and/or W Cont Bilat IMPRESSION: No significant abnormality identified on the breast MR examination with contrast. CATEGORY: BIRADS Category 1: Negative. A letter regarding these results will be sent to the patient by the facility within 30 days. Electronically Signed: Delfino Martinez MD at 15:01 EDT , Service support , CC: Giovanna Greenfield MD; Tejal Mcrae DO Metal Roaster: Signed URGENT CARE VISIT Observed: 04/30/2018 Status: F Source: BRANDI REPORT 6:[address] [address] OFFICE VISIT Date of Service: 04/30/18 MR#: [id number] Acct: [id number] Name: BERTA BLACKBURN Rep #: [id number] : 1985 Provider: Elie CHRISTY Age/Sex: 33/F Location: [facility] [place] Status: Signed Intake Intake Visit Reasons: STREP Allergies acetaminophen [From Percocet] Allergy (Verified 09/19/17 16:35) Itching oxycodone HCl [From Percocet] Allergy (Verified 09/19/17 16:35) Itching Penicillins Allergy (Verified 09/19/17 16:35) Rash Sulfa (Sulfonamide Antibiotics) Allergy (Verified 09/19/17 16:35) Rash Medications clindamycin HCl 300 mg capsule 600 mg PO ONCE PRN #10 cap 09/19/17 [Rx Confirmed 09/19/17] multivitamin,zf-yoch-nzsvokfl tablet 1 tab PO QDAY 09/19/17 [History Confirmed 09/19/17] clindamycin HCl 300 mg capsule 300 mg PO TID 10 Days #30 cap 04/30/18 [Rx Confirmed 04/30/18] PFSH Medical History Non-rheumatic aortic regurgitation (Chronic) Non-rheumatic aortic stenosis (Chronic) Bicuspid aortic valve (Chronic) History of bicuspid heart valve (Acute) Surgical History History of (Chronic) History of tonsillectomy and adenoidectomy (Chronic) Family History Mother Hypertension Social History Smoking Status: Never smoker alcohol intake: current alcohol intake frequency: holidays/special occasions only HPI HPI Details: BERTA BLACKBURN, is a 33 F who presents to the office today for complaint of sore scratchy throat. Patient has a daughter who is also here that just tested positive for strep and is requesting a strep test at this time. She states that the sore scratchy throat has progressed over the past 2 days however denies any fever, chills, sweats. She has had no nausea, vomiting, diarrhea. No other associated symptoms or alleviating/aggravating factors. ROS Const Constitutional: No fever(s), headache(s), anorexia, chills or abnormal sleep pattern ENT ENT: Positive for post nasal drip, sore throat, nasal congestion and nasal discharge; no headache(s) or ear pain Resp Respiratory: No shortness of breath Cardio Cardiology: No irregular heart rhythm or palpitations Gastro GI: No nausea/dyspepsia Neuro Neurology: No headache(s) or behavioral changes Psych Psychiatric: No abnormal sleep pattern, No behavioral changes Exam Const General: cooperative, healthy appearing [facility] Head: normal to inspection Ears: hearing grossly normal bilaterally, TM's normal bilaterally, EAC's normal Nose: external nose normal, nasal discharge clear Mouth: oral mucosae normal Throat: abnormal tonsil bilaterally Resp Effort AND Inspection: normal respiratory effort Auscultation: Bilateral: Clear to Auscultation Cardio Palpation: normal PMI Rate: regular rate Rhythm: regular rhythm Other: 3 out of 6 systolic murmur with a history of bicuspid aortic valve. Neuro General: CN's II-XI intact bilaterally, alert Psych Appearance: grossly normal Mental Status: mental status grossly normal Assessment AND Plan Problems 1. Acute streptococcal pharyngitis J02.0 Status Acute Plan Positive rapid strep in the office today. Clindamycin as prescribed. Encouraged to get plenty of rest, drink lots of clear liquids, and use Tylenol or Ibuprofen (unless contraindicated) for fever and comfort. Patient also educated on other symptomatic management techniques. To be seen in 7-10 days if no improvement; sooner if worsening of symptoms. Patient advised of potential red flags and when appropriate report to the ED. Patient verbalized understanding of all the above Orders Orders: Medications New: Coding Level of Care Code Off vis,est,level 3 Diagnoses Acute streptococcal pharyngitis J02.0 Pharyngitis/tonsillitis etiology: streptococcus 04/30/18 1805 <Electronically signed by Elie CHRISTY> Date Elie CHRISTY Cosigner Signature: Date (if applicable) CC: SCREENING MAMM (CAD), Observed: 11/19/2017 Status: F Source: BRANDI GUTIÉRREZ 4:24 PM [facility] REPOSITORY [facility] [address] [place] [address] SCREENING MAMM (CAD), BILAT MR#: [id number] Acct: [id number] Name: BERTA BLACKBURN Rep #: [id number] : 1985 F 32 From: Cesario Turner MD PCP: Tejal Mcrae DO Status: PRE CLI Study: SCREENING MAMM (CAD), BILAT Date of Exam: 11/19/17 Exam# [id number] Ordering Dr: Giovanna Greenfield MD MAMMOGRAPHY - BILATERAL SCREENING REASON FOR EXAM: Female, 32 years old. Routine annual screening examination. PERTINENT HISTORY: Mother with breast cancer. Aunt with breast cancer. TECHNIQUE: Digital bilateral breast db (3D mammographic acquisition) in the CC and MLO projections. 2-D mediolateral oblique (MLO) and craniocaudad (CC) views of both breasts were obtained. CAD: Full Field Digital Mammography with Computer Added Detection was performed. COMPARISON: Comparison is made with prior study dated October 27, 2016. FINDINGS: Breast Composition: The breasts are extremely dense, which lowers the sensitivity of mammography. There are no dominant masses or suspicious calcifications. No other significant abnormalities are identified. There has been no significant change since the prior study. HPBI/SCREENING MAMM (CAD), BILAT IMPRESSION: Stable bilateral screening mammogram. Yearly follow-up mammogram recommended. (A) ASSESSMENT CATEGORY: BIRADS Category 1: Negative. A letter regarding these results will be sent to the patient by the facility within 30 days. Approximately 10% of breast cancers are not detected by mammography. A normal mammogram should not delay biopsy of a clinically suspicious abnormality. [id number] Electronically Signed: Cesario Turner MD at 9:01 EDT Tel [phone], Service support , CC: Giovanna Greenfield MD; Tejal Mcrae DO Metal Roaster: Signed PAP I-G W/RFX HRHPV Collected: 10/01/2017 Status: F Source: BRANDI 12:00 AM [facility] REPOSITORY Order Comment: CYTOLOGY INFORMATION: - CLINICAL INFORMATION: - DATE LMP/MENOPAUSE: 09/19 LMP - COLLECTION VIAL: Thin Prep Vial - ROAD HOGGER OPERATOR SOURCE: CERVICAL/ENDOCERVICAL - COLLECTION TECHNIQUE: BRUSH/SPATULA Specimen Comment: [id number] Specimen Comment: No. of containers..01 ThinPrep Vial TYPE CODE TESTS RESULT OUT OF RANGE REFERENCE UNITS LAB L7400.0800 . Normal DIAGN Comment Result Comment: NEGATIVE FOR INTRAEPITHELIAL LESION AND MALIGNANCY. LAB L7400.0900 . Normal ADEQ Comment Result Comment: Satisfactory for evaluation. Endocervical and/or squamous metaplastic cells (endocervical component) are present. LAB L7400.1400 . Normal PERFORM Comment Result Comment: Lukas Alvarado, American Indian Policy Specialist (ASCP) LAB L7400.2575 . Normal TEST METHOD Comment Result Comment: This liquid based ThinPrep(R) pap test was screened with the use of an image guided system. LAB L7400.2600 . Normal . COMM LAB L7400.2700 . Normal PAPSMR Comment Result Comment: The Pap smear is a screening test designed to aid in the detection of premalignant and malignant conditions of the uterine cervix. It is not a diagnostic procedure and should not be used as the sole means of detecting cervical cancer. Both false-positive and false-negative reports do occur. LAB L7400.2800 . Normal HPV RFLX Comment Result Comment: The HPV DNA reflex criteria were not met with this specimen result therefore, no HPV testing was performed. Performed at: - [facility] [id number] Charcoal Unloader: Candi Dennison MD, Phone: [phone] Performed By: #### L7400.0350 #### [facility] (refer to report for specific site) refer to report for address and phone number CARDIOLOGY VISIT Observed: 09/19/2017 Status: F Source: BRANDI REPORT 5:05 PM [facility] REPOSITORY [facility] [address] [place] [address] OFFICE VISIT Date of Service: 09/19/17 MR#: [id number] Acct: [id number] Name: BERTA BLACKBURN #: [id number] : 1985 Provider: Harry Vazquez MD Age/Sex: 32/F Location: [facility] [place] Status: Signed HPI 1 Y FU: Chief Complaint: Follow-up visit. Details: BERTA BLACKBURN, is a 32 F who presents to the office today for follow-up visit for her bicuspid aortic valve. She has been asymptomatic doing well at this time. She now has 2 children aged 3 and 2. She has had no neck, jaw discomfort suggest angina no dizziness or diaphoresis no near syncope or syncope. She had a routine echocardiogram performed which demonstrated a mean gradient of approximately 10 mmHg across the aortic valve with mild aortic regurgitation. In comparison to the echocardiogram from 2015 the mean gradient is essentially unchanged ejection fraction is normal. Her physical exam demonstrates clear lung cristina regular rate and rhythm and midsystolic click and a 1-2 over systolic murmur noted left sternal border. Intake Vital Signs09/19/17 Height 5 ft 09/19/17 Weight: 131 lb 09/19/17 Body Mass Index (BMI) 25.5 09/19/17 Blood Pressure 104/60 09/19/17 Respiratory Rate 16 09/19/17 Pulse Rate 78 Intake Visit Reasons: 1 Y FU Allergies acetaminophen [From Percocet] Allergy (Verified 09/19/17 16:35) Itching oxycodone HCl [From Percocet] Allergy (Verified 09/19/17 16:35) Itching Penicillins Allergy (Verified 09/19/17 16:35) Rash Sulfa (Sulfonamide Antibiotics) Allergy (Verified 09/19/17 16:35) Rash Medications clindamycin HCl 300 mg capsule 600 mg PO ONCE PRN #10 cap 09/19/17 [Rx Confirmed 09/19/17] multivitamin,dz-zhsa-kpoxgidp tablet 1 tab PO QDAY 09/19/17 [History Confirmed 09/19/17] Ejection fraction %: 60 to 64 PFSH Medical History Non-rheumatic aortic regurgitation (Chronic) Non-rheumatic aortic stenosis (Chronic) Bicuspid aortic valve (Chronic) History of bicuspid heart valve (Acute) Surgical History History of (Chronic) History of tonsillectomy and adenoidectomy (Chronic) Family History Mother Hypertension Social History Smoking Status: Never smoker alcohol intake: current alcohol intake frequency: holidays/special occasions only ROS Const Const: Negative for fatigue, weakness, difficulty sleeping, frequent falls, headache(s) or excessive sweating Eyes Eyes: Negative for loss of peripheral vision, transient loss of vision, blurry vision or double vision ENT ENT: Negative for headache(s), Negative for dizziness, Negative for Nosebleed/epistaxis, Negative for balance problems Cardio Chest Pain: No Edema: None Muscle aches with walking: None Resp Respiratory: Negative for SOB with activity, SOB at rest, SOB orthopnea\SOB lying down or paroxysmal nocturnal dyspnea GI GI: Negative nausea or heartburn : Negative for hematuria Musc Musc: Negative for muscle aches/ myalgia, muscle weakness, joint pain or balance problems Skin Skin: Negative non-healing lesions, unusual bruising or rash Neuro Neuro: Negative for weakness, Negative for frequent falls, Negative for blurry vision, Negative for headache(s), Negative for dizziness, Negative for lightheadedness, Negative for orthostatic symptoms, Negative for double vision Stanislaw Hematologic/Lymphatic: Negative for easy bruising Endo Endo: Negative for fatigue, excessive sweating or increased thirst/drinking Psych Psych: Negative for anxiety or depression Allergy Allergy/Immunology: Negative for hives, Negative for rash Cardiology Exam Const Appearance: cooperative, healthy appearing, well developed, well groomed and no acute distress Nutritional Appearance: well nourished and average body habitus Orientation: alert, awake and oriented x3 Head Head: normal to inspection, normocephalic and atraumatic Ears: hearing grossly normal bilaterally and external ears normal Nose: external nose normal, nasal mucous membranes and turbinates normal, nares normal, septum normal, no nasal discharge Face and Sinus: face symmetric Mouth: oral mucosae normal, tongue normal, oropharynx normal and moist mucous membranes Teeth and gingiva: dentition normal Throat: posterior oropharynx normal, tonsils normal and uvula midline Eyes General: appearance normal, both eyes and all related structures Eyelids: eyelids normal Conjunctivae: conjunctivae normal Pupils: PERRL, normal by confrontation and accommodation normal EOM: EOM intact bilaterally Neck Neck: normal visual inspection, trachea midline and no JVD JVD: +5 Carotids: normal carotid upstroke and bounding pulses Chest Chest inspection: normal inspection of the chest, symmetric chest movement and normal respiratory effort Auscultation: Bilateral: Clear to Auscultation Cardio Palpation: normal PMI Rate: regular rate Rhythm: regular rhythm Heart sounds: S1 normal, S2 normal and mid systolic click Murmur: Grade 1/6, soft, early systolic and LLSB GI GI: normal to inspection, soft, no hepatosplenomegaly and bowel sounds present Neuro General: alert, awake, oriented x3, no focal sensory deficit, gait normal and moves all extremities Skin Skin: no rashes or lesions noted Extremities Pulses: Normal: Right Femoral Pulse, Left Femoral Pulse, Right Dorsalis Pedis Pulse, Left Dorsalis Pedis Pulse, Right Posterior Tibial Pulse, Left Posterior Tibial Pulse, Right Radial Pulse, Left Radial Pulse Lower Extremity Edema: None: Bilateral Musculoskel Musculoskeletal: No joint tenderness Psych Psychological: normal affect Assessment AND Plan 1. Bicuspid aortic valve Q23.1 Plan She does have an asymptomatic bicuspid aortic valve with an adequate mean gradient ejection fraction is preserved my recommendation is to continue antibiotic prophylaxis. I like to see her again in approximately 18 months. We will consider a repeat echocardiogram in 2 years from now. Certainly if she should have any symptoms she should not hesitate to get in touch with me. Plan Detail Other Medications New: Discontinued: azithromycin Discontinued Reason: take 2 tablets today and one for the n Yany Ji Pt no longer taking ext for days ferrous gluconate Discontinued Nchi272 mg PO DAILY@0800 anemia Yany Ji on: Pt no longer taking Follow Up 18 Months (date pitter) 09/19/17 1705 <Electronically signed by Harry Vazquez MD> Date Harry Vazquez MD Cosigner Signature: Date (if applicable) CC: Tejal Mcrae DO ECHOCARDIOGRAM COMPLETE Observed: 08/31/2017 Status: F Source: BRANDI 11:19 AM [facility] REPOSIT[facility] [place] [facility] [address] [place] [address] Echo Complete 08/31/17 0811 MR#: [id number] Acct: [id number] Name: BERTA BLACKBURN Rep #: [id number] : 1985 32 From: Harry Vazquez MD Attending Dr: Harry Vazquez MD Status: REG CLI Ordering Dr: Harry Vazquez MD Date: 08/31/17 Location: [facility] Sex: F C Admitted: Reason For Study: BICUSPID AV Procedure This was a 2D Doppler, Color Flow transthoracic echocardiogram. Exam performed in department. Left Ventricle Normal LV size. Left ventricular systolic function is normal. The estimated ejection fraction is 60 %. No regional wall motion abnormalities noted. Right Ventricle Normal RV size. Normal systolic function. Atria Normal left atrium. Normal right atrium. Mitral Valve Normal mitral valve. Trivial eccentric mitral valve insufficiency. Tricuspid Valve Normal tricuspid valve. Mild tricuspid valve insufficiency. Aortic Valve Bicuspid aortic valve. Peak aortic valve gradient 20 mmHg. Mean aortic valve gradient 10 mmHg. Mild aortic stenosis. Mild (1+) aortic valve insufficiency. Pulmonic Valve Normal pulmonic valve. Great Vessels Normal aortic root. The pulmonary artery is normal size. Normal inferior vena cava. Pericardium/Pleural No pericardial effusion. MMode/2D Measurements AND Calculations LVIDd: 3.8 cm IVSd: 0.62 cm LVOT diam: 2.0 cm LVIDs: 2.6 cm LVPWd: 0.65 cm LVOT area: 3.1 cm2 RVDd: 2.8 cm FS: 29.5 % Ao root diam: 2.5 cm LAV(MOD-bp): 36.7 ml EDV(MOD-sp4): 83.3 ml LA dimension: 2.9 cm LAV(MOD-bp) Indexed: 24.0 ml/m2 ESV(MOD-sp4): 32.6 ml LAV(MOD-sp2): 36.5 ml EF(MOD-sp4): 60.9 % LAV(MOD-sp4): 36.1 ml EDV(MOD-sp2): 93.2 ml SV(MOD-sp4): 50.7 ml SV(MOD-sp2): 59.4 ml EF(MOD-sp2): 63.8 % LA A4 area: 14.2 cm2 RA A4 area: 12.1 cm2 Doppler Measurements AND Calculations MV E max moshe: 92.5 cm/sec Lat Peak E' Moshe: 17.1 cm/sec Med Peak E' Moshe: 12.3 cm/sec MV A max moshe: 47.9 cm/sec E/E' lat: 5.4 E/E' med: 7.5 MV E/A: 1.9 Ao V2 max: 226.1 cm/sec AI max moshe: 352.8 cm/sec LV V1 max: 71.5 cm/sec Ao max P.5 mmHg AI max P.8 mmHg LV V1 max P.0 mmHg Ao V2 mean: 150.0 cm/sec AI dec slope: 303.0 cm/sec2 LV V1 mean P.1 mmHg Ao mean P.4 mmHg AI P1/2t: 341.0 msec LV V1 mean: 49.3 cm/sec Ao V2 VTI: 47.9 cm LV V1 VTI: 16.3 cm KULWANT(I,D): 1.0 cm2 KULWANT(V,D): 0.97 cm2 SV(LVOT): 50.0 ml PA V2 max: 83.8 cm/sec TR max moshe: 210.3 cm/sec TR max P.7 mmHg Interpretation Summary Normal LV size. Left ventricular systolic function is normal. The estimated ejection fraction is 60 %. Bicuspid aortic valve. Mild (1+) aortic valve insufficiency. Mean aortic valve gradient 10 mmHg. Compared to prior study, there is no significant change. 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: Signed ALLERGIES ALLERGIES DATE TYPE / CODE NAME / CODE REACTION SEVERITY SOURCE 08/05/2018 Drug oxycodone Itching Unknown [facility]/416 HCl/[id number](R [facility] 824989(SNOM XNORM) Repository ED CT) 08/05/2018 Drug Penicillins/F001 Rash Unknown [facility] All[facility]/416 282892(RXNORM) Hospital 498778(SNOM Repository ED CT) 08/05/2018 Drug Sulfa Rash Unknown [facility]/416 (Sulfonamide Hospital 543602(SNOM Antibiotics)/F00 [address]) 4670895(RXNORM) 06/10/2018 Drug acetaminophen/F0 Itching Unknown [facility]/416 01398296(RXNORM) Hospital 169065(SNOM Repository ED CT) ENCOUNTERS ENCOUNTERS ADMIT/DISCHARGE ACCOUNT ADMITTING ENCOUNTER LOCATION SOURCE NUMBER CLASS 08/12/2018/ [id number] Ambulatory [place] 8 4 [facility] ing:SDCRoom: Repository [id number] 06/10/2018 [id number] Ambulatory [place] 5 [facility] ing:LABSPEC Repository 06/10/2018/ [id number] Ambulatory BMSBuilding:B [place] 8 9 [facility] Repository 05/22/2018 [id number] Amb[place] 5 [facility] ing:MRI Repository 04/30/2018/ [id number] Ambulatory BMSBuilding:B [place] 8 8 [facility] Repository 11/19/2017 [id number] Ambulatory [place] 0 [facility] Hospital ing:BI Repository 10/01/2017 [id number] Ambulatory Brandi [place] 9 [facility] Hospital ing:LABSPEC Repository 09/19/2017/ [id number] Ambulatory BMSBuilding:B [place] 8 9 [facility] Repository 08/31/2017 [id number] Amb[place] 0 [facility] Hospital ing:CVS Repository 08/31/2017 [id number] Ambulatory BMSBuilding:W [place] 5 [facility] Repository PAYERS PAYERS ENCOUNTER GUARANTOR PAYER SUBSCRIBER SOURCE 08/12/2018 BERTA AHUMADA Aleksey Ge [place] [id number] Insurance:MEDICAL RIDOLFIDOB: [address] Number: Repository [id number]: 330 [id number] [phone] (HP) Date:[id number] [address] [address]LQ: 08/12/2018 Secondary NOT GIVENUNK [place] Insurance:SELF PAY [facility] Number: Effective Repository Date:2018-04-30 06/10/2018 BERTA ZARAGOZA [place] [id number] Insurance:MEDICAL RIDOLFIDOB: [address] Number: Repository [id number]: 330 [id number] [phone] (HP) Date:[id number] [address] [address]XD: 06/10/2018 Secondary NOT GIVENUNK [place] Insurance:SELF PAY [facility] Number: Effective Repository Date:2018-06-10 06/10/2018 BERTA ZARAGOZA [place] [id number] Insurance:MEDICAL RIDOLFIDOB: [address] Number: Repository [id number]: 330 [id number] [phone] (HP) Date:9045-10-40DT [address] [address]RB: 06/10/2018 Secondary NOT GIVENUNK [place] Insurance:SELF PAY [facility] Number: Effective Repository Date:2018-06-10 05/22/2018 BERTA ZARAGOZA [place] [id number] Insurance:MEDICAL RIDOLFIDOB: [address] Number: Repository [id number]: 330 [id number] [phone] (HP) Date:0669-90-11MY [address] [address]GO: 05/22/2018 Secondary NOT GIVENUNK [place] Insurance:SELF PAY [facility] Number: Effective Repository Date:2017-11-21 04/30/2018 BERTA ZARAGOZA [facility] BERTA MILA Paz [id number] Insurance:MEDICAL RIDOLFIDOB: [facility] [id number] Number: Repository [id number]: 330 [id number] [phone] (HP) Date:5483-25-28OR [address] [address]EI: 04/30/2018 Secondary NOT GIVENUNK [place] Insurance:SELF PAY [facility] Number: Effective Repository Date:2018-04-30 11/19/2017 [facility] [place] [id number] Insurance:MEDICAL RIDOLFIDOB: [facility] [id number] Number: Repository [id number]: 330 [id number] [phone] (HP) Date:[id number] [address] [address]KT: 11/19/2017 Secondary NOT GIVENUNK [place] Insurance:SELF PAY [facility] Number: Effective Repository Date:2017-10-26 10/01/2017 BERTA ZARAGOZA [facility] BERTA ZARAGOZA [place] [id number] Insurance:MEDICAL RIDOLFIDOB: [facility] [id number] Number: Repository [id number]: 330 [id number] [phone] (HP) Date:0517-63-46QR [address] [address]KC: 10/01/2017 Secondary NOT GIVENUNK [place] Insurance:SELF PAY [facility] Number: Effective Repository Date:2017-10-01 09/19/2017 BERTA ZARAGOZA [facility] BERTA Paz [id number] Insurance:MEDICAL RIDOLFIDOB: [address] Number: Repository [id number]: 330 [id number] [phone] (HP) Date:1159-55-26YQ [address] [address]XO: 09/19/2017 Secondary NOT GIVENUNK [place] Insurance:SELF PAY [facility] Number: Effective Repository Date:2017-08-11 08/31/2017 BERTA ZARAGOZA [facility] BERTA Paz [id number] Insurance:MEDICAL RIDOLFIDOB: [address] Number: Repository [id number]: 330 [id number] [phone] (HP) Date:8746-91-26RA [address] [address]UV: 08/31/2017 Secondary NOT GIVENUNK [place] Insurance:SELF PAY [facility] Number: Effective Repository Date:2017-03-01 08/31/2017 BERTA ZARAGOZA [facility] BERTA Paz [id number] Insurance:MEDICAL RIDOLFIDOB: [address] Number: Repository [id number]: 330 [id number] [phone] (HP) Date:9848-72-91EC [address] [address]EF: 08/31/2017 Secondary NOT GIVENUNK [place] Insurance:SELF PAY [facility] Number: Effective Repository Date:2017-08-31
== END 2018-08-13 10:17 | disposition home or self-care (01) ==
LOC: SDC 05:40 → AC 05:42 → MS3 08:19
PROVIDERS: Anesthesiology; Family Provider Family Medicine; PCP Family Medicine; Referring Provider Obstetrics & Gynecology; Visit Provider Obstetrics & Gynecology
PROC: 0UT94ZZ Resection of Uterus, Percutaneous Endoscopic Approach (ICD-10-PCS; CPT 58552; principal; 2018-08-12 07:10)
DX: Z40.09 Encounter for prophylactic removal of other organ (principal); Z40.02 Encounter for prophylactic removal of ovary(s); Z15.02 Genetic susceptibility to malignant neoplasm of ovary; Z15.01 Genetic susceptibility to malignant neoplasm of breast; N88.8 Other specified noninflammatory disorders of cervix uteri; N72 Inflammatory disease of cervix uteri; N83.11 Corpus luteum cyst of right ovary; N83.12 Corpus luteum cyst of left ovary; N83.8 Other noninflammatory disorders of ovary, fallopian tube and broad ligament; Q23.1 Congenital insufficiency of aortic valve; Z79.899 Other long term (current) drug therapy; Z88.0 Allergy status to penicillin; Z88.5 Allergy status to narcotic agent; Z88.2 Allergy status to sulfonamides; Z80.3 Family history of malignant neoplasm of breast; Z80.41 Family history of malignant neoplasm of ovary
CPT/HCPCS: 00840; 58552; S2900; 36415; 80048; 81025; 82565; 82962; 84703; 85027; 85610; 85730; 86850; 86900; 88307; 93005; J7050; J7120; A4216; J2405

== ENCOUNTER → 2018-12-18 09:06 | Outpatient (CLI) | payer OTHER, SELFPAY ==
[2018-08-12 12:09] VITALS: BMI 25.9
[2018-11-23 13:37] VITALS: BMI 25.9
--- NOTE | 2018-12-18 09:09 | BI_ITS ---
MAMMOGRAPHY - BILATERAL SCREENING REASON FOR EXAM: Female, 33 years old. Routine annual screening examination. PERTINENT HISTORY: Mother with breast cancer. Grandmother with breast cancer. Occasional left breast nipple discharge. TECHNIQUE: Digital bilateral breast db (3D mammographic acquisition) in the CC and MLO projections. 2-D mediolateral oblique (MLO) and craniocaudad (CC) views of both breasts were obtained. CAD: Full Field Digital Mammography with Computer Added Detection was performed. COMPARISON: Comparison is made with prior mammogram dated November 19, 2017 and October 27, 2016. FINDINGS: Breast Composition: The breasts are extremely dense, which lowers the sensitivity of mammography. There are no dominant masses or suspicious calcifications. No other significant abnormalities are identified. There has been no significant change since the prior study. BI/SCREENING MAMM (CAD), BILAT IMPRESSION: Stable bilateral screening mammogram. Yearly follow-up mammogram recommended. (A) ASSESSMENT CATEGORY: BIRADS Category 1: Negative. A letter regarding these results will be sent to the patient by the facility within 30 days. Approximately 10% of breast cancers are not detected by mammography. A normal mammogram should not delay biopsy of a clinically suspicious abnormality. [id number] Electronically Signed: Cesario Turner, at 14:50 EDT , Service support ,
== END ==
PROVIDERS: Family Provider Family Medicine; PCP Family Medicine; Visit Provider Obstetrics & Gynecology
DX: Z12.31 Encounter for screening mammogram for malignant neoplasm of breast (principal)
CPT/HCPCS: 77063; 77067

== ENCOUNTER → 2019-03-30 14:45 | Outpatient (CLI) | payer OTHER, SELFPAY ==
[2019-03-30 12:18] VITALS: BMI 25.5
== END ==
PROVIDERS: Family Provider Family Medicine; PCP Family Medicine; Visit Provider Physician Assistant Medical
DX: J02.9 Acute pharyngitis, unspecified (principal)
CPT/HCPCS: 87081

== ENCOUNTER → 2019-10-31 08:05 | Outpatient (CLI) | payer OTHER, SELFPAY ==
[2019-03-30 12:18] VITALS: BMI 25.5
--- NOTE | 2019-10-31 08:13 | US_ITS ---
STUDY: Soft tissue neck ULTRASOUND REASON FOR EXAM: Female, 34 years old. AREA OF PALP LUMP RT NECK TECHNIQUE: Ultrasound evaluation of the soft tissue neck was performed with real-time and static abdi-scale imaging. COMPARISON: None. FINDINGS: In region of palpable abnormality, there is a 9 x 8 x 2 mm reniform shape structure with central echogenicity likely representing a small reactive lymph node. No solid or cystic mass. US/Head/Neck Soft Tissue IMPRESSION: 1. Probable small lymph node in region of palpable abnormality. No solid or cystic mass demonstrated. Electronically Signed: Guzman Qureshi MD ([place]) at 15:13 EST , Service support ,
[2019-10-31 08:54] LABS: Absolute Lymphocyte Count 2.58 X10^3/uL (0.83-4.51); Absolute Neutrophil Count 3.1 X10^3/uL (2.0-7.7); Basophil# 0.05 X10^3/uL; Basophil% 0.7 % (0-1); Eosinophil# 0.19 X10^3/uL; Eosinophils% 2.8 % (0-5); Hematocrit 40.3 % (37-47); Hemoglobin 12.7 g/dL (12.0-15.0); Lymphocyte # 2.58 X10^3/ul (4.0); Lymphocyte % 38.7 % (19-41); Mean Corp Hgb Conc 31.5 g/dL (32-36); Mean Corpuscular Hgb 29.1 pg (27.0-32.0); Mean Corpuscular Volume 92.2 fL (81-99); Mean Platelet Vol. 9.8 fl (6.2-12.0); Monocyte# 0.77 X10^3/uL; Monocyte% 11.5 % (0-10); NRBC Flagged by Analyzer 0 % (0-5); Neutrophil # 3.07 X10^3/uL (2.7-7.7); Neutrophil % 46.2 % (47-70); Platelet Count 284 K/mm3 (150-450); RBC Distribution Width SD 40.8 fl (35.1-43.9); Red Blood Count 4.37 M/mm3 (4.2-5.4); White Blood Count 6.7 K/mm3 (4.4-11.0)
[2019-10-31 09:10] LABS: ALB/GLOB Ratio 1.1 RATIO (0.9-2.4); AST(SGOT) 18 U/L (15-37); Alanine Aminotransfer ALT/SGPT 27 U/L (13-56); Albumin, Serum 3.9 g/dL (3.2-5.0); Alkaline Phosphatase 87 U/L (45-117); Anion Gap 6 (5-15); BUN 15 mg/dL (7-18); BUN/Creat Ratio 19.7 RATIO (10-20); Calcium,Total 8.9 mg/dL (8.5-10.1); Chloride 108 mmol/L (98-107); Cholesterol 204 mg/dL (200); Creatinine, Serum 0.76 mg/dL (0.55-1.02); EST Glomerular Filtration Rate 93 mL/min (>60); Est Glom Filt Rate - Afr Amer 112 mL/min (>60); Globulin 3.5 g/dL (2.2-4.2); Glucose 89 mg/dL (74-106); High Density Lipoprotein 66 mg/dL; Potassium 3.8 mmol/L (3.5-5.1); Protein, Total 7.4 g/dL (6.4-8.2); Sodium Level 142 mmol/L (136-145); Triglycerides 88 mg/dL; Very Low Density Lipoprotein 18 mg/dL (5-40)
== END ==
PROVIDERS: PCP Family Medicine; Referring Provider Family Medicine; Visit Provider Family Medicine
DX: R22.1 Localized swelling, mass and lump, neck (principal); R53.83 Other fatigue; Z13.220 Encounter for screening for lipoid disorders; Z51.81 Encounter for therapeutic drug level monitoring
CPT/HCPCS: 36415; 76536; 80053; 80061; 85025

== ENCOUNTER → 2020-02-16 | Outpatient (CLI) | payer OTHER, SELFPAY ==
[2019-03-30 12:18] VITALS: BMI 25.5
--- NOTE | 2020-02-16 08:04 | ECHOD_ITS ---
Version 2 Reason For Study: Bicuspid AV Procedure This was a 2D Doppler, Color Flow transthoracic echocardiogram. Exam performed in department. Left Ventricle Normal LV size. Left ventricular systolic function is normal. The estimated ejection fraction is 60 %. No regional wall motion abnormalities noted. Right Ventricle Normal RV size. Normal systolic function. Atria Normal left atrium. Normal right atrium. Mitral Valve Normal mitral valve. Trivial eccentric mitral valve insufficiency. Tricuspid Valve Normal tricuspid valve. Mild tricuspid valve insufficiency. Aortic Valve Bicuspid aortic valve. Peak aortic valve gradient 18 mmHg. Mean aortic valve gradient 10 mmHg. Mild aortic stenosis. Great Vessels Normal aortic root. The pulmonary artery is normal size. Normal inferior vena cava. Pericardium/Pleural No pericardial effusion. MMode/2D Measurements & Calculations LVIDd: 3.5 cm IVSd: 1.1 cm LVOT diam: 2.0 cm LVIDs: 2.2 cm LVPWd: 0.93 cm LVOT area: 3.0 cm2 RVDd: 3.2 cm FS: 35.6 % Ao root diam: 2.8 cm LAV(MOD-bp): 31.2 ml Aortic Valve Planimetry: 2.2 cm2 LA dimension: 2.9 cm LAV(MOD-bp) Indexed: 19.9 ml/m2 LAV(MOD-sp2): 32.9 ml LAV(MOD-sp4): 26.4 ml LA A4 area: 12.2 cm2 RA A4 area: 9.9 cm2 Time Measurements MV dec time: 0.18 sec Doppler Measurements & Calculations MV E max moshe: 87.9 cm/sec Lat Peak E' Moshe: 18.1 cm/sec Med Peak E' Moshe: 12.2 cm/sec MV A max moshe: 53.2 cm/sec E/E' lat: 4.9 E/E' med: 7.2 MV E/A: 1.7 MV V2 max: 93.2 cm/sec MV P1/2t max moshe: 93.2 cm/sec Ao V2 max: 210.9 cm/sec MV max P.5 mmHg MV P1/2t: 65.0 msec Ao max P.8 mmHg MV V2 mean: 56.0 cm/sec MV dec slope: 420.0 cm/sec2 Ao V2 mean: 142.9 cm/sec MV mean P.4 mmHg MVA(P1/2t): 3.4 cm2 Ao mean P.5 mmHg MV V2 VTI: 24.9 cm Ao V2 VTI: 47.6 cm MVA(VTI): 2.1 cm2 KULWANT(I,D): 1.1 cm2 KULWANT(V,D): 1.0 cm2 AI max moshe: 385.0 cm/sec LV V1 max: 72.5 cm/sec SV(LVOT): 51.2 ml AI max P.3 mmHg LV V1 max P.1 mmHg LV V1 mean P.1 mmHg AI dec slope: 248.5 cm/sec2 LV V1 mean: 49.4 cm/sec AI P1/2t: 453.8 msec LV V1 VTI: 16.8 cm PA V2 max: 78.0 cm/sec TR max moshe: 200.3 cm/sec TR max P.0 mmHg Interpretation Summary Normal LV size. Left ventricular systolic function is normal. The estimated ejection fraction is 60 %. Mean aortic valve gradient 10 mmHg. Mild aortic stenosis. Bicuspid aortic valve. Compared to prior study, there is no significant change. Ordering Physician: Harry Vazquez Referring Physician: Tejal Mcrae Performed By: Suman Hdz RCS
== END | disposition home or self-care (01) ==
LOC: CVS 08:04
PROVIDERS: PCP Family Medicine; Referring Provider Internal Medicine Cardiovascular Disease; Visit Provider Internal Medicine Cardiovascular Disease
DX: Q23.1 Congenital insufficiency of aortic valve (principal)
CPT/HCPCS: 93306

== ENCOUNTER → 2020-09-23 | Outpatient (CLI) | payer OTHER, SELFPAY ==
[2020-09-23 11:55] VITALS: BMI 26.0
[2020-09-23 16:11] LABS: Color, Urine Yellow (Yellow); Glucose, Dipstick Normal (Normal); Ketone-Dipstick Negative (Negative); Leukocyte Esterase-Dipstick Negative /ul (Negative); Nitrite-Dipstick Negative (Negative); Occult Blood-Urine Negative /ul (Negative); Protein-Dipstick 15 mg/dl (Negative); Urine Bilirubin Dipstick Negative (Negative); Urine Clarity Sl. Cloudy (Clear); Urine Urobilinogen Normal (Normal)
== END | disposition home or self-care (01) ==
LOC: LABSPEC 15:07
PROVIDERS: PCP Family Medicine; Referring Provider Physician Assistant; Visit Provider Physician Assistant
DX: R10.9 Unspecified abdominal pain (principal); R07.89 Other chest pain
CPT/HCPCS: 81002; 87086

== ENCOUNTER 2020-09-24 15:13 | Emergency (ER) | payer OTHER, SELFPAY ==
[2020-09-23 11:55] VITALS: BMI 26.0
[2020-09-24 15:14] VITALS: BP 117/82; PULSE 104; RESP 16; TEMP 36.3; O2SAT 100; BMI 25.4
--- NOTE | 2020-09-24 16:10 | ED.DCSUM_ITS ---
- ER Visit Summary Date of Service: 09/24/20 Chief Complaint: Right flank pain History of Present Illness: The patient is a [address] Mcrae. She reports she has right flank pain that began 2 days ago. Is gradually gotten worse. It is a dull ache that is constant. Its sharp at times with movement or deep breaths. Is 9-10 at worst and 6 out of 10 currently. Is relieved by remaining still and Tylenol. Patient denies any trauma. No fall, MVA, or change in activity. She has no personal family history of kidney stones or DVT. No recent travel. She is not on control pills. She denies any ankle swelling or calf pain. Patient reports pain does radiate around into the right upper quadrant. She denies any fatty food intolerance. No nausea, vomiting, or diarrhea. Physical Examination: Vitals: Stable. Afebrile. General: Well-nourished and well-developed. Head: Normocephalic atraumatic. Neck: Supple, no lymphadenopathy. No JVD. Nontender. Cardiovascular: Regular rate and rhythm. No murmurs. Respiratory: No respiratory distress. Clear to auscultation bilaterally. Abdominal: Soft, nontender, nondistended, normal bowel sounds. No guarding, rebound, or peritoneal signs. Back: Nontender. Extremities: Nontender, no edema. Skin: Normal color, no rash. Neurologic: Alert and oriented ?3. Cranial nerves II through XII are intact. Normal strength and sensation. Psych: Normal affect. Test Results: BC shows a white count of 12.6 with 14 monocytes. Chem-7 is normal. LFTs are normal. Lipase is normal. Urinalysis is normal. Clinical Impression(s) from Imaging Studies Abdomen Ultrasound 09/24/20 17:11 IMPRESSION: Suboptimal visualization of pancreas due to bowel gas producing artifact which may be further assessed with CAT scan if clinically indicated. Otherwise unremarkable right upper quadrant sonogram Electronically Signed: Keyshawn Ken MD at 18:05 EST , Service support , Emergency Department Course and Treatment: Patient had an IV placed. She was given a liter normal saline. She is resting comfortably. She refused pain or nausea medications. Treatment Plan: Had a prolonged scratch with the patient at this time I do not have an explanation of her pain. I did offer to do a CT of the chest and she is refused this. She refused pain medications for home. She be discharged with instructions to follow-up with her primary care physician in 3 to 5 days for another exam. Return to the emergency department for any worsening symptoms. Disposition: To home in improved and stable condition. Impression: 1. Right flank pain, uncertain cause. This note was generated with [employer] software. It may contain incorrect words, spelling, and punctuation that were not noted in review of the chart prior to signing ED Disposition - Plan for ED Patient: Instructions: ED Flank Pain, Uncertain Cause Referrals: Tejal Mcrae DO [Primary Care Provider] - 3-5 Days
[2020-09-24] MEDS: 0.9% Normal Saline 1,000 ML 1000 ML IV (16:27)
[2020-09-24 16:37] LABS: Mucous, Urine 0 SEEN /hpf (<or=2+); Red Blood Cells-Urine 0 SEEN /hpf (0-5); Squamous Epithelial Cells - UA 0 SEEN /hpf (5-10); White Blood Cells 0 SEEN /hpf (0-5)
[2020-09-24 16:40] VITALS: BP 108/95; PULSE 95; RESP 21; TEMP 37; O2SAT 97
[2020-09-24 16:44] LABS: Hematocrit 38.1 % (37-47); Hemoglobin 12.2 g/dL (12.0-15.0); Mean Corpuscular Hgb 29.6 pg (27.0-32.0); Mean Corpuscular Volume 92.5 fL (81-99); Mean Platelet Vol. 9.6 fl (6.2-12.0); POSITIVE DIFFERENTIAL YES; Platelet Count 339 K/mm3 (150-450); RBC Distribution Width CV 12.3 % (11.6-14.6); RBC Distribution Width SD 41.9 fl (35.1-43.9); Red Blood Count 4.12 M/mm3 (4.2-5.4); White Blood Count 12.6 K/mm3 (4.4-11.0)
[2020-09-24 16:53] LABS: Color, Urine Yellow (Yellow); Glucose, Dipstick Normal (Normal); Ketone-Dipstick Negative (Negative); Leukocyte Esterase-Dipstick Negative /ul (Negative); Nitrite-Dipstick Negative (Negative); Occult Blood-Urine Negative /ul (Negative); Protein-Dipstick Negative (Negative); Urine Bilirubin Dipstick Negative (Negative); Urine Clarity Clear (Clear); Urine Urobilinogen Normal (Normal)
[2020-09-24 16:58] LABS: AST(SGOT) 16 U/L (15-37); Alanine Aminotransfer ALT/SGPT 19 U/L (13-56); Albumin, Serum 3.9 g/dL (3.2-5.0); Alkaline Phosphatase 103 U/L (45-117); Anion Gap 5 (5-15); BUN 16 mg/dL (7-18); BUN/Creat Ratio 20.9 RATIO (10-20); Bilirubin, Direct < 0.05 mg/dL (0.00-0.30); Calcium,Total 9.1 mg/dL (8.5-10.1); Chloride 106 mmol/L (98-107); Creatinine, Serum 0.77 mg/dL (0.55-1.02); EST Glomerular Filtration Rate 91 mL/min (>60); Est Glom Filt Rate - Afr Amer 110 mL/min (>60); Estimated Creatinine Clearance 73.95 ml/min; Globulin 3.7 g/dL (2.2-4.2); Glucose 82 mg/dL (74-106); Lipase 151 U/L (73-393); Potassium 3.6 mmol/L (3.5-5.1); Protein, Total 7.6 g/dL (6.4-8.2); Sodium Level 138 mmol/L (136-145)
[2020-09-24 17:03] LABS: Differential Comment SCANNED; Differential Indicated SCAN CRITERIA MET
[2020-09-24 17:04] LABS: Absolute Lymphocyte Count 2.66 X10^3/uL (0.83-4.51); Basophil# 0.06 X10^3/uL; Basophil% 0.5 % (0-1); Eosinophils% 0.8 % (0-5); Lymphocyte # 2.66 X10^3/ul (4.0); Monocyte# 1.81 X10^3/uL; Monocyte% 14.3 % (0-10); Neutrophil # 7.98 X10^3/uL (2.7-7.7); Neutrophil % 63.2 % (47-70)
[2020-09-24 17:08] LABS: D-Dimer Quantitative (DVT/PE) 0.31 FEU/ug/m (0.27-0.49)
[2020-09-24 17:11] LABS: Bacteria 1+ /hpf (None Seen)
--- NOTE | 2020-09-24 17:11 | US_ITS ---
STUDY: ABDOMINAL ULTRASOUND - RIGHT UPPER QUADRANT REASON FOR VISIT: Female, 35 years old ABD PAIN TECHNIQUE: Ultrasound evaluation of the right upper quadrant was performed with real-time and static abdi-scale imaging. TECHNICAL QUALITY: Adequate. COMPARISON: None. FINDINGS: Liver: The liver measures 13.6 cm. There is normal echogenicity of the liver. The bile ducts are within normal limits. There is hepatic color flow. The direction of portal flow is hepatopetal. There is no demonstrated mass lesion. Gallbladder: Normal distended gallbladder. The gallbladder wall measures 2 mm. There is a negative sonographic Scott''s sign. There is no pericholecystic fluid. There are no gallstones. Common Bile Duct (C.B.D.): The common bile duct measures 3 mm. Pancreas: Not well visualized due to bowel gas producing artifact.. Right Kidney: Normal size of the right kidney. The right kidney measures 9.1 x 0.8 x 3.6 cm. Normal renal cortex. The right cortex measures 1.4 cm. There is no demonstrated renal mass or cyst. There is no right hydronephrosis. US/Abdomen Limited IMPRESSION: Suboptimal visualization of pancreas due to bowel gas producing artifact which may be further assessed with CAT scan if clinically indicated. Otherwise unremarkable right upper quadrant sonogram Electronically Signed: Keyshawn Ken MD at 18:05 EST , Service support ,
[2020-09-24 17:18] VITALS: BP 116/73; PULSE 91; RESP 16; O2SAT 100
[2020-09-24 19:06] VITALS: BP 113/72; PULSE 76; RESP 18
[2020-09-27 13:21] LABS: Pathologist Review Reviewed
== END 2020-09-24 19:07 | disposition home or self-care (01) ==
LOC: ED 16:05
PROVIDERS: Emergency Provider Emergency Medicine; PCP Family Medicine
DX: R10.11 Right upper quadrant pain (principal); M54.9 Dorsalgia, unspecified; Z79.899 Other long term (current) drug therapy; Z86.16 Personal history of COVID-19
CPT/HCPCS: 76705; 80048; 80076; 81001; 83690; 85025; 85379; 96360; 99284; J7030; J7050

== ENCOUNTER → 2021-08-24 17:22 | Outpatient (CLI) | payer OTHER, SELFPAY ==
[2021-08-24 17:44] LABS: Absolute Lymphocyte Count 3.02 X10^3/uL (0.83-4.51); Absolute Neutrophil Count 5.5 X10^3/uL (2.0-7.7); Basophil# 0.07 X10^3/uL; Basophil% 0.7 % (0-1); Eosinophil# 0.21 X10^3/uL; Eosinophils% 2.1 % (0-5); Hematocrit 39.7 % (37-47); Hemoglobin 13.2 g/dL (12.0-15.0); Lymphocyte # 3.02 X10^3/ul (0.83-4.51); Lymphocyte % 30.4 % (19-41); Mean Corp Hgb Conc 33.2 g/dL (32-36); Mean Corpuscular Hgb 30.9 pg (27.0-32.0); Mean Platelet Vol. 9.6 fl (6.2-12.0); Monocyte# 1.11 X10^3/uL; Monocyte% 11.2 % (0-10); NRBC Flagged by Analyzer 0 % (0-5); Neutrophil # 5.49 X10^3/uL (2.7-7.7); Neutrophil % 55.4 % (47-70); Platelet Count 325 K/mm3 (150-450); RBC Distribution Width CV 12.1 % (11.6-14.6); RBC Distribution Width SD 41.5 fl (35.1-43.9); Red Blood Count 4.27 M/mm3 (4.2-5.4); White Blood Count 9.9 K/mm3 (4.4-11.0)
[2021-08-24 18:27] LABS: AST(SGOT) 23 U/L (15-37); Alanine Aminotransfer ALT/SGPT 28 U/L (13-56); Alkaline Phosphatase 105 U/L (45-117); Anion Gap 7 (5-15); BUN 20 mg/dL (7-18); BUN/Creat Ratio 25.8 RATIO (10-20); Calcium,Total 9.2 mg/dL (8.5-10.1); Chloride 105 mmol/L (98-107); Creatinine, Serum 0.78 mg/dL (0.55-1.02); EST Glomerular Filtration Rate 90 mL/min (>60); Est Glom Filt Rate - Afr Amer 109 mL/min (>60); Free T3 3.1 pg/mL (2.18-3.98); Globulin 3.9 g/dL (2.2-4.2); Glucose 90 mg/dL (74-106); Iron 79 ug/dL (50-170); Potassium 3.9 mmol/L (3.5-5.1); Protein, Total 7.9 g/dL (6.4-8.2); Sodium Level 138 mmol/L (136-145); Thyroid Stim Hormone (TSH) 2.26 uIU/mL (0.358-3.74)
[2021-08-24 18:38] LABS: Vitamin B12 558 pg/mL (211-911)
[2021-08-26 10:16] LABS: Thyroid Peroxidase AB 53 IU/mL (0-34)
== END ==
PROVIDERS: PCP Family Medicine; Visit Provider Family Medicine
DX: D64.9 Anemia, unspecified (principal); R53.83 Other fatigue
CPT/HCPCS: 36415; 80053; 82607; 83540; 84439; 84443; 84481; 85025; 86376

== ENCOUNTER 2021-11-19 09:09 | Outpatient (CLI) | payer OTHER, SELFPAY ==
[2021-11-19 10:21] LABS: Free T3 2.7 pg/mL (2.18-3.98); T4 Free Direct 0.91 ng/dL (0.76-1.46); Thyroid Stim Hormone (TSH) 1.34 uIU/mL (0.358-3.74)
== END 2021-11-19 23:59 | disposition home or self-care (01) ==
LOC: POLAB3 09:15 → LAB 09:33
PROVIDERS: PCP Family Medicine; Referring Provider Family Medicine; Visit Provider Family Medicine
DX: E03.9 Hypothyroidism, unspecified (principal)
CPT/HCPCS: 36415; 84439; 84443; 84481

== ENCOUNTER → 2022-04-17 | Outpatient (CLI) | payer OTHER, SELFPAY ==
[2022-04-17 11:15] LABS: Free T3 2.7 pg/mL (2.18-3.98); T4 Free Direct 0.99 ng/dL (0.76-1.46); Thyroid Stim Hormone (TSH) 1.15 uIU/mL (0.358-3.74)
== END | disposition home or self-care (01) ==
LOC: LAB 09:38
PROVIDERS: PCP Family Medicine; Referring Provider Family Medicine; Visit Provider Family Medicine
DX: E03.9 Hypothyroidism, unspecified (principal)
CPT/HCPCS: 36415; 84439; 84443; 84481

== ENCOUNTER → 2023-04-20 | Outpatient (CLI) | payer OTHER, SELFPAY ==
[2023-04-20 09:45] LABS: Absolute Lymphocyte Count 2.24 X10^3/uL (0.83-4.51); Absolute Neutrophil Count 3.5 X10^3/uL (2.0-7.7); Basophil# 0.05 X10^3/uL; Basophil% 0.7 % (0-1); Eosinophil# 0.15 X10^3/uL; Eosinophils% 2.2 % (0-5); Hematocrit 41.1 % (37-47); Hemoglobin 13.3 g/dL (12.0-15.0); Lymphocyte # 2.24 X10^3/ul (0.83-4.51); Lymphocyte % 32.2 % (19-41); Mean Corp Hgb Conc 32.4 g/dL (32-36); Mean Corpuscular Hgb 28.9 pg (27.0-32.0); Mean Corpuscular Volume 89.2 fL (81-99); Mean Platelet Vol. 9.7 fl (6.2-12.0); Monocyte# 0.99 X10^3/uL; Monocyte% 14.2 % (0-10); NRBC Flagged by Analyzer 0 % (0-5); Neutrophil # 3.51 X10^3/uL (2.7-7.7); Neutrophil % 50.4 % (47-70); Platelet Count 303 K/mm3 (150-450); RBC Distribution Width CV 13.8 % (11.6-14.6); Red Blood Count 4.61 M/mm3 (4.2-5.4)
[2023-04-20 10:30] LABS: AST(SGOT) 23 U/L (15-37); Alanine Aminotransfer ALT/SGPT 23 U/L (13-56); Albumin, Serum 3.6 g/dL (3.2-5.0); Alkaline Phosphatase 82 U/L (45-117); Anion Gap 6 (5-15); BUN 15 mg/dL (7-18); BUN/Creat Ratio 18.5 RATIO (10-20); Chloride 108 mmol/L (98-107); Cholesterol 240 mg/dL (200); Creatinine, Serum 0.81 mg/dL (0.55-1.02); EST Glomerular Filtration Rate 84 mL/min (>60); Est Glom Filt Rate - Afr Amer 102 mL/min (>60); Free T3 2.7 pg/mL (2.18-3.98); Globulin 3.7 g/dL (2.2-4.2); Glucose 98 mg/dL (74-106); High Density Lipoprotein 70 mg/dL; Potassium 4.3 mmol/L (3.5-5.1); Protein, Total 7.3 g/dL (6.4-8.2); Sodium Level 140 mmol/L (136-145); T4 Free Direct 1.06 ng/dL (0.76-1.46); Thyroid Stim Hormone (TSH) 1.77 uIU/mL (0.358-3.74); Triglycerides 79 mg/dL; Very Low Density Lipoprotein 16 mg/dL (5-40)
== END | disposition home or self-care (01) ==
LOC: LAB 09:23
PROVIDERS: PCP Family Medicine; Referring Provider Family Medicine; Visit Provider Family Medicine
DX: Z00.00 Encounter for general adult medical examination without abnormal findings (principal); E03.9 Hypothyroidism, unspecified; Z51.81 Encounter for therapeutic drug level monitoring
CPT/HCPCS: 36415; 80053; 80061; 84439; 84443; 84481; 85025

== ENCOUNTER → 2023-05-18 | Outpatient (CLI) | payer OTHER, SELFPAY ==
--- NOTE | 2023-05-18 10:54 | ECHOD_ITS ---
Reason For Study: BICUSPID AV Procedure This was a 2D Doppler, Color Flow transthoracic echocardiogram. Exam performed in department. Left Ventricle Normal LV size. Left ventricular systolic function is normal. The estimated ejection fraction is 65 %. Normal diastology for age. No regional wall motion abnormalities noted. Right Ventricle Normal RV size. Normal systolic function. Atria Normal left atrium. Normal right atrium. Mitral Valve Normal mitral valve. Tricuspid Valve Normal tricuspid valve. Mild tricuspid valve insufficiency. Pulmonary artery systolic pressure is 24 mmHg. Aortic Valve Bicuspid aortic valve. Peak aortic valve gradient 28 mmHg. Mean aortic valve gradient 17 mmHg. Mild aortic stenosis. Pulmonic Valve Normal pulmonic valve. Great Vessels Normal aortic root. The pulmonary artery is normal size. Normal inferior vena cava. Pericardium/Pleural No pericardial effusion. MMode/2D Measurements & Calculations LVIDd: 4.0 cm IVSd: 0.82 cm LVOT diam: 1.9 cm LVIDs: 3.2 cm LVPWd: 0.80 cm LVOT area: 2.9 cm2 RVDd: 2.7 cm FS: 20.9 % Ao root diam: 2.7 cm LAV(MOD-bp): 32.5 ml LVAd ap4: 27.8 cm2 LAV(MOD-bp) Indexed: 19.9 ml/m2 LVLd ap4: 8.2 cm LAV(MOD-sp2): 33.1 ml EDV(MOD-sp4): 77.1 ml LAV(MOD-sp4): 33.7 ml EDV(sp4-el): 80.2 ml LVAs ap4: 13.9 cm2 LVLs ap4: 6.7 cm ESV(MOD-sp4): 25.4 ml ESV(sp4-el): 24.4 ml EF(MOD-sp4): 67.1 % EF(sp4-el): 69.6 % SV(MOD-sp4): 51.7 ml SV(sp4-el): 55.8 ml LA A4 area: 14.2 cm2 LA dimension(2D): 2.8 cm RA A4 area: 13.4 cm2 TAPSE: 2.2 cm Time Measurements MV dec time: 0.21 sec Doppler Measurements & Calculations MV E max moshe: 100.7 cm/sec Lat Peak E' Moshe: 18.5 cm/sec Med Peak E' Moshe: 11.1 cm/sec MV A max moshe: 76.0 cm/sec E/E' lat: 5.5 E/E' med: 9.1 MV E/A: 1.3 MV V2 max: 102.7 cm/sec Ao V2 max: 263.5 cm/sec MV max P.2 mmHg MV dec slope: 508.7 cm/sec2 Ao max P.8 mmHg MV V2 mean: 68.6 cm/sec Ao V2 mean: 192.6 cm/sec MV mean P.1 mmHg Ao mean P.7 mmHg MV V2 VTI: 30.4 cm Ao V2 VTI: 63.9 cm AV (velocity ratio): 0.34 MVA(VTI): 2.1 cm2 KULWANT(I,D): 0.98 cm2 KULWANT(V,D): 0.86 cm2 LV V1 max: 78.5 cm/sec SV(LVOT): 62.5 ml PA V2 max: 79.6 cm/sec LV V1 max P.5 mmHg PA V2 mean: 57.9 cm/sec LV V1 mean P.7 mmHg LV V1 mean: 62.4 cm/sec LV V1 VTI: 21.8 cm TR max moshe: 224.4 cm/sec TR max P.1 mmHg ECHO/Echo Complete Interpretation Summary Normal LV size. Left ventricular systolic function is normal. The estimated ejection fraction is 65 %. Normal diastology for age. Bicuspid aortic valve. Mean aortic valve gradient 17 mmHg. Mild aortic stenosis. Ordering Physician: Tejal Mcrae Referring Physician: Tejal Mcrae Performed By: Berna Cheung RCS
== END | disposition home or self-care (01) ==
PROVIDERS: PCP Family Medicine; Referring Provider Family Medicine; Visit Provider Family Medicine
DX: I35.0 Nonrheumatic aortic (valve) stenosis (principal)
CPT/HCPCS: 93306

== ENCOUNTER 2023-09-17 17:30 | Outpatient (RCR) | payer OTHER, SELFPAY ==
--- NOTE | 2023-08-21 07:02 | HP.OTEVAL ---
Patient's Visit Information Visit Information Visit Information: BRANDYN SHARMA is a 38 year old F, referred to Occupational Therapy by Dr. Rita Apodaca MD, with a diagnosis of ulnar nerve lesion. Date of Evaluation: 08/20/23 Occupational Therapist: Aparna Rollins, CARMELA/Mina, CHT Subjective Subjective: This 38 year old female was seen for OT eval with sx of right wrist pain, Ulnar nerve lesion - pt states she started having pain in the summer and noticed increase symptoms in apr. 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 pt states she modified her lap top and her computer mouse to avoid pressure while typing. pt states when see was able to see her drFrederick and found out symptoms were from ulnar neve at her elbow she started to wear an elbow brace and it did help decrease her symptoms. 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 the dr felt was more ulnar nerve issue and now bracing elbow it has helped. pt states she would like to alleviate her symptoms to return to her PLOF. 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 with ADls and IADLs by d.c Goal:: pt will report no pain with writing on white board, or small groups by d/c Goal:: Pt will demo understanding of joint protection and ergonomics when performing BADLs and IADLs by d/c Pt will demo understanding of adaptive Equipment use to decrease stress on joints to allow pt to perform BADSL and IADLS at MARYANN level. Goal:: Pt will demo understanding of using supportive bracing 80% of workday/ADLS to decrease stress on tendon origin to allow healing and decrease pain by end of 2nd session. Rehabilitation General Assessment: pt demo with positive symptoms of ulnar nerve lesion: pain weakness and tingling along right LF/RF. this limits her IND with ADls and work tasks. pt would benefit from skilled OT services 1-2x week for 3-4 weeks to ed. pt on ulnar nerve glides, avoidance of keeping elbows bent for long periods of time, avoiding hyper extending elbows with her exercise program, along with returning pt to her PLOF. Today therapist initiated ulnar nerve glides for pt. and she was given instructions. pt demo understanding and agree to POC. Rehabilitation Potential: Good Anticipated Interventions Anticipated Interventions: Strengthening, Triggerpoint Release, Modalities, Orthoses, Joint Protection/Energy Conservation, Ergonomic Education, Education re assistive Equipment, Education re Diagnosis and Home Program Other Interventions: bracing Visit Plan Frequency: 1-2x /Week Duration: 4 Weeks TEXT: Thank you for the opportunity to evaluate your patient. For Medicare and Medicare HMO plans, please review the plan of care and approve it. It will need to be FAXED BACK to us at [phone] for Medicare purposes. Please let me know if there are questions or concerns regarding this plan of care. Physician Signature: Date:
--- NOTE | 2023-09-18 13:25 | HP.OTDCSUM_ITS ---
Discharge Summary D/C Summary: It has been my pleasure to treat BRANDYN SHRAMA under orders from Dr. Rita Apodaca MD, for the diagnosis of ulnar nerve lesion for a total of 7 visit(s). Please see the following information for a summary of their discharge status. 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 with ADls and IADLs by d.c Goal:: pt will report no pain with writing on white board, or small groups by d/c Goal:: Pt will demo understanding of joint protection and ergonomics when performing BADLs and IADLs by d/c Pt will demo understanding of adaptive Equipment use to decrease stress on joints to allow pt to perform BADSL and IADLS at MARYANN level. Goal:: Pt will demo understanding of using supportive bracing 80% of workday/ADLS to decrease stress on tendon origin to allow healing and decrease pain by end of 2nd session. 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 pt to return to for further assessment. pt agree with POC. d/c sentence: If there are questions or concerns regarding this patient's occupational therapy, please fell free to call me at [phone]. Thank you for the referral of this patient. Sincerely, Aparna Rollins, OTR/L, CHT
--- NOTE | 2023-12-20 08:34 | HP.OTDCSUM_ITS ---
Discharge Summary D/C Summary: It has been my pleasure to treat BRANDYN SHARMA under orders from Dr. Rita Apodaca MD, for the diagnosis of ulnar nerve lesion for a total of 7 visit(s). Please see the following information for a summary of their discharge status. 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 with ADls and IADLs by d.c Goal:: pt will report no pain with writing on white board, or small groups by d/c Goal:: Pt will demo understanding of joint protection and ergonomics when performing BADLs and IADLs by d/c Pt will demo understanding of adaptive Equipment use to decrease stress on joints to allow pt to perform BADSL and IADLS at MARYANN level. Goal:: Pt will demo understanding of using supportive bracing 80% of workday/ADLS to decrease stress on tendon origin to allow healing and decrease pain by end of 2nd session. 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 pt to return to for further assessment. pt agree with POC. d/c sentence: If there are questions or concerns regarding this patient's occupational therapy, please fell free to call me at [phone]. Thank you for the referral of this patient. Sincerely, Aparna Rollins, OTR/L, CHT
== END 2023-09-17 19:00 | disposition home or self-care (01) ==
LOC: OT 17:30
PROVIDERS: PCP Family Medicine; Visit Provider Family Medicine
DX: G56.20 Lesion of ulnar nerve, unspecified upper limb (principal)
CPT/HCPCS: 97035; 97110; 97140; 97166; 97530

== ENCOUNTER → 2024-05-19 | Outpatient (CLI) | payer OTHER, SELFPAY ==
[2024-05-19 12:04] LABS: Absolute Lymphocyte Count 2.17 X10^3/uL (0.83-4.51); Absolute Neutrophil Count 3.2 X10^3/uL (2.0-7.7); Basophil# 0.09 X10^3/uL; Basophil% 1.3 % (0-1); Eosinophil# 0.22 X10^3/uL; Eosinophils% 3.2 % (0-5); Hematocrit 40.2 % (37-47); Hemoglobin 12.8 g/dL (12.0-15.0); Lymphocyte # 2.17 X10^3/ul (0.83-4.51); Lymphocyte % 32.1 % (19-41); Mean Corp Hgb Conc 31.8 g/dL (32-36); Mean Corpuscular Hgb 29.6 pg (27.0-32.0); Mean Corpuscular Volume 92.8 fL (81-99); Mean Platelet Vol. 10.2 fl (6.2-12.0); Monocyte# 1.09 X10^3/uL; Monocyte% 16.1 % (0-10); NRBC Flagged by Analyzer 0 % (0-5); Neutrophil # 3.18 X10^3/uL (2.7-7.7); Platelet Count 297 K/mm3 (150-450); RBC Distribution Width CV 13.2 % (11.6-14.6); RBC Distribution Width SD 44.6 fl (35.1-43.9); Red Blood Count 4.33 M/mm3 (4.2-5.4); White Blood Count 6.8 K/mm3 (4.4-11.0)
[2024-05-19 12:31] LABS: AST(SGOT) 27 U/L (15-37); Alanine Aminotransfer ALT/SGPT 39 U/L (13-56); Albumin, Serum 3.7 g/dL (3.2-5.0); Alkaline Phosphatase 119 U/L (45-117); Anion Gap 7 (5-15); BUN 19 mg/dL (7-18); Calcium,Total 9.6 mg/dL (8.5-10.1); Chloride 106 mmol/L (98-107); Cholesterol 245 mg/dL (200); Creatinine, Serum 0.86 mg/dL (0.55-1.02); EST Glomerular Filtration Rate 78 mL/min (>60); Est Glom Filt Rate - Afr Amer 95 mL/min (>60); Free T3 2.7 pg/mL (2.18-3.98); Globulin 3.8 g/dL (2.2-4.2); Glucose 94 mg/dL (74-106); High Density Lipoprotein 47 mg/dL; Potassium 4.2 mmol/L (3.5-5.1); Protein, Total 7.5 g/dL (6.4-8.2); Sodium Level 139 mmol/L (136-145); T4 Free Direct 0.86 ng/dL (0.76-1.46); Triglycerides 191 mg/dL; Very Low Density Lipoprotein 38 mg/dL (5-40)
== END | disposition home or self-care (01) ==
LOC: BFHLAB 09:11
PROVIDERS: PCP Family Medicine; Referring Provider Family Medicine; Visit Provider Family Medicine
DX: Z00.00 Encounter for general adult medical examination without abnormal findings (principal); E03.9 Hypothyroidism, unspecified; Z51.81 Encounter for therapeutic drug level monitoring
CPT/HCPCS: 36415; 80053; 80061; 84439; 84443; 84481; 85025

== ENCOUNTER 2024-11-08 09:03 | Emergency (ER) | payer OTHER, SELFPAY ==
[2024-11-08] VITALS (7 sets, daily range): BP systolic 107–141; BP diastolic 70–97; PULSE 120–141; RESP 16–18; TEMP 37.2–37.7; O2SAT 97–100; BMI 30.7
--- NOTE | 2024-11-08 09:24 | EKG12_ITS ---
Test Reason : GENERAL Blood Pressure : */* mmHG Vent. Rate : 130 BPM Atrial Rate : 130 BPM P-R Int : 138 ms QRS Dur : 72 ms QT Int : 284 ms P-R-T Axes : 60 59 72 degrees QTcB Int : 417 ms Sinus tachycardia Otherwise normal ECG Confirmed by Mahad Hood ([id number]), manager editorial ELIZABETH HUERTAS ([id number]) on 11/10/2024 7:01:51 AM Referred By: TB Confirmed By: Mahad Hood
--- NOTE | 2024-11-08 10:16 | EX.ED.DYSGE1 ---
HPI History of Present Illness Chief Complaint: Palpitations Narrative Narrative: Patient is a 31-year-old female with a past medical history of breast cancer with bilateral mastectomy, bicuspid aortic valve who presented to the emergency department with a chief complaint of elevated heart rate. Patient states that for the past few days she noted that she had flulike symptoms went to urgent care they tested her for this and noted that she was negative. They noted that her heart rate was elevated and with her bicuspid aortic valve was concerned and sent her here for the valuation management. Patient denies any history of blood clots denies recent travel history. Patient states that her heart rate yesterday was also elevated to the 130s and her Fitbit said that she burned 5000 maryuri even though she was not doing anything. Patient states that she does not feel like her heart is pounding in her chest. [facility] Medical History Acute pharyngitis, unspecified Laceration of right middle finger Aortic stenosis with bicuspid valve BRCA gene positive Bicuspid aortic valve History of bicuspid heart valve Home Medications ?Medication ?Instructions ?Recorded ?Last Taken ?Type fluticasone propionate 50 1 spray NASAL DAILY ALLERGIES 08/05/18 Unknown History mcg/actuation nasal spray,suspension ftperxgk-[id number]-[id number]-FA-Ca carb-vit K 1 ea PO DAILY SUPPLEMENT 08/05/18 Unknown History 18 mg iron-400 mcg-500 mg tablet levothyroxine 25 mcg tablet 25 mcg PO 11/26/22 Unknown History (Synthroid) montelukast 10 mg tablet 10 mg PO 11/26/22 Unknown History cholecalciferol (vitamin D3) 125 125 mcg PO QDAY 08/23/24 Unknown History mcg (5,000 unit) capsule magnesium 200 mg tablet 200 mg PO QDAY 08/23/24 Unknown History vitamin B complex 1 cap PO QDAY 08/23/24 Unknown History Allergy/AdvReac Type Severity Reaction Status Date / Time oxycodone HCl (From Percocet) Allergy Itching Verified 11/08/24 09:04 Penicillins Allergy Rash Verified 11/08/24 09:04 Sulfa (Sulfonamide Allergy Rash Verified 11/08/24 09:04 Antibiotics) Family History Mother Hypertension Surgical History H/O total hysterectomy with bilateral salpingo-oophorectomy (BSO) (08/2018) History of History of tonsillectomy and adenoidectomy Social History Smoking Status: Never smoker alcohol intake: current alcohol intake frequency: holidays/special occasions only ROS ROS ED ROS Narrative Constitutional: Complains of chills denies fevers, lightheadedness, dizziness Eyes: Denies change in vision double vision blurry vision Cardiovascular: Denies chest pain or palpitations Respiratory: Denies coughing wheezing shortness of breath Abdomen: Denies abdominal pain nausea vomit diarrhea : Denies any urinary symptoms Neurological: Denies numbness, weakness, tingling Musculoskeletal: Denies back pain Skin: Denies any rashes or lesions EXAM Physical Exam Narrative Exam Narrative: General: Patient lying in bed rest comfortably did not appear to be in acute distress Head: Atraumatic, normocephalic Eyes: PERRL bilaterally, EOMI bilateral, no conjunctival injection noted Neck: Soft, supple, trach midline Cardiovascular: Patient tachycardic with a regular rhythm Respiratory: Clear to auscultation bilaterally Abdomen: No tenderness palpation Musculoskeletal: No bilateral lower extremity swelling Extremities: +5/5 strength noted in the bilateral upper and lower extremities Neurological: Patient following commands knew that she was at [facility] year is 2024 Skin: Warm, dry, intact no rashes or lesions noted Const Vital Signs: 11/08/24 09:03 11/08/24 09:03 11/08/24 10:39 Temperature 99 F Temperature Source Temporal Pulse Rate 139 H 141 H 120 H Respiratory Rate 18 18 Respiratory Effort Blood Pressure 141/97 H Blood Pressure Mean 111 Pulse Ox 100 99 Oxygen Delivery Method Room Air Room Air 11/08/24 10:40 11/08/24 11:43 11/08/24 12:14 Temperature 99.8 F H 99.8 F H Temperature Source Oral Oral Pulse Rate 122 H 121 H Respiratory Rate 18 18 Respiratory Effort Normal Non-Labored Blood Pressure 119/85 H 119/85 H Blood Pressure Mean 96 96 Pulse Ox 99 98 Oxygen Delivery Method Room Air Room Air 11/08/24 13:58 Temperature 98.9 F Temperature Source Oral Pulse Rate 123 H Respiratory Rate 16 Respiratory Effort Blood Pressure 107/70 Blood Pressure Mean 82 Pulse Ox 97 Oxygen Delivery Method Room Air MDM MDM MDM Narrative Medical decision making narrative: Patient is a 39-year-old female who presented to the emergency department chief complaint of tachycardia, generalized not feeling well. On the differential diagnose includes but not limited to upper respiratory faction secondary viral etiology, pneumonia, PE, hyperthyroidism. Once workup is obtained and reviewed she will be reevaluated. Patient CBC was significant for leukocytosis of 18,000, hemoglobin 13.5, platelet count was noted be 253. Patient sodium noted to be 131, potassium normal 3.7, creatinine normal at 0.74. Patient's troponin was noted to be normal at 9 with a delta troponin normal at 13. Patient's proBNP was noted be 249. Patient's TSH was noted be normal at 0.58, free T4 and T3 were 1.10 and 2.3 respectively. Patient tested negative for COVID flu RSV. Patient CT angiography of chest was reviewed showed no evidence of pulmonary embolism lungs are clear. On reevaluation patient she is still persistently tachycardic to the 120s she will be given a gram of Tylenol and another liter of fluid. On reevaluation the patient's heart rate is noted to be in the 120s still therefore I reach out to cardiology Dr. Hood who reviewed EKG and we discussed given her bicuspid aortic valve to obtain cultures which were ordered. We will hold these for 2 weeks per his request. Patient did have a dental cleaning approximately 2 weeks ago but states that she had a cleaning earlier in the year prior to this and had no antibiotics at that point time either and was fine. Patient states that she has had a total hysterectomy and does not have a period. On reevaluation of the patient again her heart rate has improved to 112. She is advised to continue to hydrate orally and rotate Tylenol and ibuprofen [id number]. 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 She should return if worsening symptoms or any concerns. She is agreeable spinal cord concerns answered she was discharged home in stable condition. Lab Data Labs: Laboratory Results - last 24 hr 11/08/24 11/08/24 10:40 12:50 WBC 18.5 H RBC 4.75 Hgb 13.5 Hct 39.9 MCV 84.0 MCH 28.4 MCHC 33.8 RDW Std Deviation 48.3 H RDW Coeff of Jonathan 15.7 H Plt Count 253 MPV 9.4 Immature Gran % (Auto) 0.500 Neut % (Auto) 71.1 H Lymph % (Auto) 13.4 L Clare % (Auto) 14.7 H Eos % (Auto) 0.0 Baso % (Auto) 0.3 Absolute Neuts (auto) 13.2 H Absolute Lymphs (auto) 2.48 Nucleated RBC % 0 Differential Comment SCANNED Diff Path Review May foll Sodium 131 L Potassium 3.7 Chloride Direct 98 Carbon Dioxide 17.4 L Anion Gap 15 BUN 10 Creatinine 0.74 Estim Creat Clear Calc 90.77 Est GFR (MDRD) Non-Af 105 BUN/Creatinine Ratio 13.2 Glucose 93 Calcium 9.5 Troponin T High Sens 9 Troponin T Hi Sens 2 Hr 13 Troponin T Hi Sens 2Hr Delta 3 NT pro BNP II 249 TSH 0.580 Free T4 1.10 Free T3 pg/dL 2.3 Radiography Diagnostic Testing: Clinical Impression(s) from Imaging Studies Chest CTA 11/08/24 10:53 IMPRESSION: 1. No CT evidence of acute pulmonary embolism One or more dose reduction techniques were used (e.g., Automated exposure control, adjustment of the mA and/or kV according to patient size, use of iterative reconstruction technique). Reading Location: [facility] Discharge Plan Triage Chief Complaint: Palpitations ED Provider: James Gottlieb Dx/Rx/DC Orders Clinical Impression: Tachycardia, Fatigue Prescriptions: No Action montelukast 10 mg tablet 10 mg PO levothyroxine [Synthroid] 25 mcg tablet 25 mcg PO cholecalciferol (vitamin D3) 125 mcg (5,000 unit) capsule 125 mcg PO QDAY magnesium 200 mg tablet 200 mg PO QDAY vitamin B complex Capsule 1 cap PO QDAY fluticasone propionate 1 SPRAY spray,suspension 1 spray NASAL DAILY qz-ri-hdso-FA-Ca carb-vit K 1 EACH tablet 1 ea PO DAILY Primary Care Provider: Tejal Mcrae Referrals: Tejal Mcrae DO [Primary Care Provider] - Activity Restrictions/Additional Instructions: Follow-up on blood culture results. Your CT chest did not show any evidence of pneumonia or blood clots in your lungs. Continue to hydrate orally keep a close eye on your heart rate if you are having any other concerns return to the emergency department. Print Language: Urdu Disposition Disposition: Home, Self Care
[2024-11-08 10:48] LABS: Absolute Lymphocyte Count 2.48 X10^3/uL (0.83-4.51); Absolute Neutrophil Count 13.2 X10^3/uL (2.0-7.7); Basophil# 0.05 X10^3/uL; Basophil% 0.3 % (0-1); Differential Indicated SCAN CRITERIA MET; Hematocrit 39.9 % (37-47); Hemoglobin 13.5 g/dL (12.0-15.0); Lymphocyte # 2.48 X10^3/ul (0.83-4.51); Lymphocyte % 13.4 % (19-41); Mean Corp Hgb Conc 33.8 g/dL (32-36); Mean Corpuscular Hgb 28.4 pg (27.0-32.0); Mean Platelet Vol. 9.4 fl (6.2-12.0); Monocyte# 2.73 X10^3/uL; Monocyte% 14.7 % (0-10); NRBC Flagged by Analyzer 0 % (0-5); Neutrophil # 13.18 X10^3/uL (2.7-7.7); Neutrophil % 71.1 % (47-70); POSITIVE DIFFERENTIAL YES; Platelet Count 253 K/mm3 (150-450); RBC Distribution Width CV 15.7 % (11.6-14.6); RBC Distribution Width SD 48.3 fl (35.1-43.9); Red Blood Count 4.75 M/mm3 (4.2-5.4); White Blood Count 18.5 K/mm3 (4.4-11.0)
--- NOTE | 2024-11-08 10:53 | CT_ITS ---
PROCEDURE: CTA CHEST W/WO CONTRAST REASON FOR EXAM: Palpitations, tachycardia, history of breast cancer TECHNIQUE: CTA imaging of the chest with intravenous contrast. 3D reconstructions. COMPARISON: None. FINDINGS: Hardware: None. Lymph nodes: No mediastinal hilar or axillary lymphadenopathy. Heart: Normal heart size. No pericardial effusion. RV/LV Diameter Ratio: N/A Thoracic Aorta: No thoracic aortic aneurysm or dissection. Pulmonary Vessels: No evidence of acute pulmonary emboli through the major subsegmental branches. Most Proximal Level of Embolus (if embolus present): N/A Lungs and Airways: The lungs are normally expanded and clear. Pleura: No pleural effusion. No pneumothorax. Upper Abdomen: Visualized portions of the upper abdominal viscera are unremarkable. Bones: Bone windows are unremarkable. CT/CTA Chest W/WO Contrast IMPRESSION: 1. No CT evidence of acute pulmonary embolism One or more dose reduction techniques were used (e.g., Automated exposure contr ol, adjustment of the mA and/or kV according to patient size, use of iterative reconstruction technique). Reading Location: [facility]
[2024-11-08] MEDS: 0.9% Normal Saline (1000mL) 1,000 ML 999 ML IV ×2 (11:00→12:13)
[2024-11-08 11:08] LABS: Differential Comment SCANNED
[2024-11-08 11:13] LABS: Anion Gap 15 (5-15); BUN 10 mg/dL (4-19); BUN/Creat Ratio 13.2 RATIO (10-20); Calcium 9.5 mg/dL (7.6-11.0); Carbon Dioxide 17.4 mmol/L (22.0-29.0); Chloride 98 mmol/L (96-108); Creatinine, Serum 0.74 mg/dL (0.70-1.20); EST Glomerular Filtration Rate 105 (>60); Estimated Creatinine Clearance 90.77 ml/min; Free T3 2.3 pg/mL (2.18-3.98); Glucose 93 mg/dL (70-99); Potassium 3.7 mmol/L (3.3-5.1); Sodium Level 131 mmol/L (133-145)
[2024-11-08 11:24] LABS: Pro- Brain NATRIURETIC PEPTIDE 249 pg/mL (<=450); Troponin T High Sensitivity 9 ng/L (<=14)
[2024-11-08] MEDS: Acetaminophen 500 MG Tablet 1000 MG PO (12:13)
[2024-11-08 13:25] LABS: TROPONIN VARIANCE 2 HR 3; Troponin T High Sens 2 HR 13 ng/L (<=14)
--- NOTE | 2024-11-08 13:49 | ED.RN ---
call light in pt room not working. this RN and another RN attempted to trouble shoot the issue. pt spouse upset and slamming doors because the call light is not working and the pt needed to use the restroom. this RN apologized and unhooked the pt from monitor and IV so pt could ambulate to the restroom.
--- NOTE | 2024-11-08 14:39 | ED.RN ---
Patient had Lymph nodes removed from right arm requesting not to have blood drawn on that arm.
[2024-11-12 13:51] LABS: Pathologist Review Reviewed
== END 2024-11-08 14:56 | disposition home or self-care (01) ==
PROVIDERS: Emergency Provider Emergency Medicine; PCP Family Medicine; Visit Provider Emergency Medicine
DX: R00.0 Tachycardia, unspecified (principal); R00.2 Palpitations; Q23.81 Bicuspid aortic valve; R53.83 Other fatigue; Z11.52 Encounter for screening for COVID-19; Z79.890 Hormone replacement therapy; Z85.3 Personal history of malignant neoplasm of breast; Z90.13 Acquired absence of bilateral breasts and nipples
CPT/HCPCS: 71275; 80048; 83880; 84439; 84443; 84481; 84484; 85025; 87040; 93005; 96360; 96361; 99285; Q9967; A4216

== ENCOUNTER → 2024-11-10 | Outpatient (CLI) | payer OTHER, SELFPAY ==
[2024-11-11 17:07] LABS: EBV Acute VCA IgM < 36.0 U/mL (0.0-35.9)
== END | disposition home or self-care (01) ==
LOC: BFHLAB 09:43
PROVIDERS: PCP Family Medicine; Referring Provider Family Medicine; Visit Provider Family Medicine
DX: J02.9 Acute pharyngitis, unspecified (principal)
CPT/HCPCS: 36415; 86665

== ENCOUNTER → 2025-03-06 | Outpatient (CLI) | payer OTHER, SELFPAY ==
[2025-03-10 16:08] LABS: Lyme IgG P18 Ab Absent (.); Lyme IgG P23 Ab Absent (.); Lyme IgG P28 Ab Absent (.); Lyme IgG P30 Ab Absent (.); Lyme IgG P39 Ab Absent (.); Lyme IgG P41 Ab Present (.); Lyme IgG P45 Ab Absent (.); Lyme IgG P58 Ab Present (.); Lyme IgG P66 Ab Absent (.); Lyme IgG P93 Ab Absent (.); Lyme IgG WB Interpretation Negative (Negative); Lyme IgM P23 Ab Absent (.); Lyme IgM P39 Ab Absent (.); Lyme IgM P41 Ab Absent (.); Lyme IgM WB Interpretation Negative (Negative)
== END | disposition home or self-care (01) ==
LOC: MTLAB 09:29
PROVIDERS: PCP Family Medicine; Referring Provider Physician Assistant Surgical; Visit Provider Physician Assistant Surgical
DX: R52 Pain, unspecified (principal)
CPT/HCPCS: 36415; 86617